=== PATIENT | female | born 2000 | race African-American/Black ===

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

== ENCOUNTER 2022-08-06 09:01 | Emergency (ER) | payer OTHER, SELFPAY ==
[2022-08-06 09:19] VITALS: BP 116/68; PULSE 74; RESP 16; TEMP 35.8; O2SAT 99
--- NOTE | 2022-08-06 09:27 | ED.URI ---
HPI - URI/Sore Throat General Chief Complaint: Upper Respiratory Infection Stated Complaint: sore throat Time Seen by Provider: 08/06/22 09:27 Source: patient and RN notes reviewed Mode of arrival: ambulatory Limitations: no limitations History of Present Illness HPI Narrative: 22-year-old female presented for complaint of sore throat, nasal congestion, and ears clogged x5 days. Taking NyQuil for symptoms. She denies known sick contacts. She denies cough, shortness of breath, wheezing, headache, nausea, vomiting, diarrhea, fevers or chills. MD elicited complaint: cough Related Data Allergies Allergy/AdvReac Type Severity Reaction Status Date / Time ibuprofen AdvReac Intermediate Vomiting Verified 08/06/22 09:21 Review of Systems Review of Systems: ROS per HPI [facility] Past Medical History Medical History No active medical problems No significant past medical history Surgical History Surgical History No significant past surgical history Family History Family History Other No significant family history Social History Social History Smoking status: Never smoker Alcohol intake: never Substance use: current Substance use type: marijuana Living arrangements: with family Occupation/Education: occupation Exam Narrative: GENERAL: Mildly ill-appearing EYES: conjunctivae clear ENT: Mucous membranes moist. TM pearly simons with dull light reflex and clear effusion bilaterally; no tragal tenderness. Oropharynx erythematous without lesions or exudate, no drooling, no hoarseness, no trismus, uvula midline. No tripod positioning, muffled voice, soft palate or pharyngeal wall bulging NECK: Supple. Right posterior cervical lymphadenopathy CHEST: Clear to auscultation, breath sounds equal. No wheezing, rhonchi, rales, or stridor. No respiratory distress, speaks in full sentences. HEART: Regular rate and rhythm. No murmur heard. SKIN: Warm, dry, no rash. NEURO: Alert and oriented x3. PSYCH: Normal mood and affect Course Course Emergency Course: Patient is aware of diagnosis, understands and agrees to treatment plan. Anticipatory guidance given. Patient agrees to follow-up as directed and is aware of reasons to seek care at the emergency department. Portions of this record may have been created with voice recognition software Level of Care: Express Care Visit Vital Signs Vital signs: Vital Signs Temperature 96.4 F L 08/06/22 09:19 Pulse Rate 74 08/06/22 09:19 Respiratory Rate 16 08/06/22 09:19 Blood Pressure 116/68 08/06/22 09:19 Pulse Oximetry 99 08/06/22 09:19 Oxygen Delivery Room Air 08/06/22 09:19 Temperature 96.4 F L 08/06/22 09:19 Pulse Rate 74 08/06/22 09:19 Respiratory Rate 16 08/06/22 09:19 Blood Pressure 116/68 08/06/22 09:19 Pulse Oximetry 99 08/06/22 09:19 Oxygen Delivery Room Air 08/06/22 09:19 reviewed MDM - URI/Sore Throat MDM Narrative Medical decision making narrative: Results of strep test reviewed with patient. Advised supportive measures and signs/symptoms to go to the ER. Pt is appropriate for outpt treatment and f/u. Differential Diagnosis Differential diagnosis: Likely upper respiratory infection, sinusitis and viral infection Discharge Plan Discharge Clinical Impression: Strep pharyngitis Patient Disposition: Home, Self-Care Condition: Stable Instructions: Antibiotic Form Additional Instructions: - Take the antibiotic as directed. Fever and sore throat typically resolve within one to three days. Most patients can return to work after 12 to 24 hours of antibiotic therapy, provided you are fever free and otherwise well. -Eat and drink things that are easy to swallow, like soft foods, cool li
== END 2022-08-06 09:44 | disposition home or self-care (01) ==
PROVIDERS: Emergency Provider Nurse Practitioner Family; PCP Family Medicine
DX: J02.0 Streptococcal pharyngitis (principal)
CPT/HCPCS: 87880; 99213; G0463

== ENCOUNTER 2023-01-28 09:14 | Emergency (ER) | payer OTHER, SELFPAY ==
[2023-01-28 09:26] VITALS: BP 117/63; PULSE 80; RESP 14; TEMP 36.3; O2SAT 98
--- NOTE | 2023-01-28 09:31 | ED.EAR ---
HPI - Ear Problem General Chief complaint: Ear Stated complaint: Right Ear Irritation Time Seen by Provider: 01/28/23 09:30 Source: patient Mode of arrival: ambulatory Limitations: no limitations History of Present Illness HPI Narrative: Terrence is a 22-year-old female patient presenting to the clinic today with complaints of right ear pain. She reports she has been recently treated for a right ear infection. States that she has completed her antibiotics but still having some discomfort in the right ear. Denies any drainage coming from the ear or pain with pulling of the pinna or palpation of the tragus. Has had some nasal congestion. Related Data Allergies Allergy/AdvReac Type Severity Reaction Status Date / Time ibuprofen AdvReac Intermediate Vomiting Verified 01/28/23 09:25 Review of Systems Review of Systems: Pertinent positives per HPI. Patient denies any fever, chills, rash, headache, visual changes, dizziness, sore throat, shortness of breath, chest pain, palpitations, nausea, vomiting, diarrhea, constipation, abdominal pain, or any urinary issues. PMFSH Past Medical History Medical History No active medical problems No significant past medical history Surgical History Surgical History No significant past surgical history Family History Family History Other No significant family history Social History Social History Smoking status: Never smoker Alcohol intake: never Substance use: current Substance use type: marijuana Living arrangements: with family Occupation/Education: occupation Comments At the time of my signature, I reviewed and agree with the nursing past medical, surgical, social, and family history. There is no relevant family history pertinent to the patient complaint. Exam Narrative: General: Well-developed, well nourished, in no apparent distress Head: Normocephalic, atraumatic Eyes: Pupils equally round and reactive to light bilaterally, EOM intact, sclera and conjunctive clear, no discharge, lids normal Ears: Right TMs intact and congestive with fluid noted behind the TM, left TM congested and intact, ear canals clear, no drainage, grossly hearing normal. Nose: Nares patent, clear discharge, no inflammation, no sinus tenderness. Mouth: Oropharynx without lesions or masses, good dentition, MMM. Neck: Supple, trachea midline, no enlargement of anterior or posterior cervical nodes, no thyroid masses or goiter palpable. Cardio: Regular rate and rhythm, s1 and s2 normal, no murmur appreciated. Resp: Clear to auscultation bilaterally anteriorly and posteriorly, no rhonchi, rales, wheezing or rubs Course Course Emergency Course: Portions of this record may have been created with voice recognition software. Level of Care: Express Care Visit Vital Signs Vital signs: Vital signs reviewed Medical Decision Making MDM Narrative Medical decision making narrative: At the time of visit patient is resting comfortably on the exam table. I suspect patient has right serous otitis/eustachian tube dysfunction. Supportive measures were discussed with the patient she voiced understanding discharge instructions agrees to treatment plan. Differential Diagnosis Differential Diagnosis: Otitis media, otitis externa, eustachian tube dysfunction, cerumen impaction, upper respiratory infection, serous otitis Discharge Plan Discharge Clinical Impression: Acute serous otitis media Qualifiers: Laterality: right Recurrence: non-recurrent Qualified Code(s): H65.01 - Acute serous otitis media, right ear Patient Disposition: Home, Self-Care Condition: Stable Instructions: Antibiotic Form, Fluid In The Ear (Serous Otitis Media) (ED)
== END 2023-01-28 09:36 | disposition home or self-care (01) ==
PROVIDERS: Emergency Provider Nurse Practitioner Family; PCP Family Medicine
DX: H65.01 Acute serous otitis media, right ear (principal); F12.90 Cannabis use, unspecified, uncomplicated
CPT/HCPCS: 99213; G0463

== ENCOUNTER 2023-04-25 12:59 | Emergency (ER) | payer SELFPAY ==
[2023-04-25 13:22] VITALS: BP 125/88; PULSE 85; RESP 16; TEMP 36.9; O2SAT 100
--- NOTE | 2023-04-25 13:48 | ED.GENADULT ---
HPI - General Adult General Chief complaint: Ear Stated complaint: Right Ear/Sore Throat Time Seen by Provider: 04/25/23 13:49 Source: patient, RN notes reviewed and old records reviewed Mode of arrival: ambulatory Limitations: no limitations History of Present Illness HPI narrative: 22-year-old female presents to the [facility] with complaints right ear pain and a sore sore throat that started on Monday. Denies any treatment prior to arrival Onset (ago): day(s) (2) Related Data Allergies Allergy/AdvReac Type Severity Reaction Status Date / Time ibuprofen AdvReac Intermediate Vomiting Verified 01/28/23 09:25 Review of Systems Review of Systems: All systems reviewed & are unremarkable except as noted in HPI and below Constitutional: Constitutional: Reports no additional constitutional complaints Eyes: Eyes: Reports no additional eye complaints ENT: Reports as per HPI, Reports otalgia and Reports sore throat Cardiovascular: Cardiovascular: Reports no additional cardiovascular complaints, Denies chest pain and Denies dyspnea Respiratory: Respiratory: Reports no additional respiratory complaints, Denies chest congestion, Denies cough and Denies dyspnea Gastrointestinal: Gastrointestinal: Reports no additional gastrointestinal complaints, Denies abdominal pain, Denies nausea and Denies vomiting Musculoskeletal: Musculoskeletal: Reports no additional musculoskeletal complaints Integumentary/Breasts: Skin/Breast: Reports system reviewed and no additional complaints, except as docu Neurologic: Reports system reviewed and no additional complaints, except as documented Psychiatric: Psychiatric: Reports no additional psychiatric complaints Allergic/Immunologic: Allergic/Immunologic: Reports no additional allergic/immunologic complaints [facility] Past Medical History Medical History No active medical problems No significant past medical history Surgical History Surgical History No significant past surgical history Family History Family History Other No significant family history Social History Social History Smoking status: Never smoker Alcohol intake: never Substance use: current Substance use type: marijuana Living arrangements: with family Occupation/Education: occupation Comments At the time of my signature, I reviewed and agree with the nursing past medical, surgical, social, and family history. There is no relevant family history pertinent to the patient complaint. Exam Const: General: cooperative, healthy appearing, comfortable, no acute distress, well developed, alert and well nourished Nutritional Appearance: well nourished Orientation/consciousness: patient oriented x3 Limitations: no limitations HENMT: Head: normal to inspection Ears: hearing grossly normal bilaterally, external ears normal and TM abnormal bulging on the right and wth effusion serous bilateral; not erythematous Face/Nose/Sinus: Normal external nose present, Normal nares present, Normal nasal mucous membranes and turbinates present, normal facial exam and face symmetric Face and sinus: normal facial exam and face symmetric Mouth: Yes Normal oral and palatal mucosa present, Yes lip normal and Yes moist mucous membranes Throat: posterior oropharynx normal, uvula midline and postnasal drainage Eyes: General: appearance normal, both eyes and all related structures Alignment and Position: alignment normal Periorbital: periorbital findings normal Pupils: Equal, round and reactive pupils present EOM: EOMs intact bilaterally Neck: Neck: normal visual inspection, full ROM, no lymphadenopathy and no meningeal signs Chest: Chest palpation & inspection: normal inspection of the chest Resp: Effort & Inspection: nor
== END 2023-04-25 14:02 | disposition home or self-care (01) ==
PROVIDERS: Emergency Provider Nurse Practitioner; PCP Family Medicine
DX: H65.01 Acute serous otitis media, right ear (principal); J02.9 Acute pharyngitis, unspecified; F12.90 Cannabis use, unspecified, uncomplicated
CPT/HCPCS: 87081; 87880; 99213; G0463

== ENCOUNTER 2023-07-30 12:09 | Emergency (ER) | payer SELFPAY ==
--- NOTE | 2023-07-30 12:17 | ED.DENTAL ---
HPI - Dental/Oral General Chief complaint: Dental/Oral Stated complaint: Dental Pain Time Seen by Provider: 07/30/23 12:27 Source: patient Mode of arrival: ambulatory Limitations: no limitations History of Present Illness HPI Narrative: 23-year-old female presents concern for left upper dental pain for 2-3 days. Ache she reports she injured the to the long time ago but it just started hurting. She denies trouble swallowing, headache, fever. She reports she has a dentist appointment tomorrow. In a separate complaint she reports bilateral ear fullness and discomfort. Reports she occasionally uses Flonase and Benadryl but has not used recently. MD Complaint: tooth pain Related Data Allergies Allergy/AdvReac Type Severity Reaction Status Date / Time ibuprofen AdvReac Intermediate Vomiting Verified 07/30/23 12:19 Review of Systems Review of Systems: CONSTITUTIONAL: Denies malaise, chills, sweats, or fever. EYES: Denies visual changes ENT: Denies rhinorrhea, congestion, sinus pain, or sore throat. Reports left upper dental pain. Reports bilateral ear fullness CARDIOVASCULAR: Denies chest pain, palpitations RESPIRATORY: Denies cough or dyspnea. SKIN: Denies rash or itching. MUSCULOSKELETAL: Denies myalgia. NEUROLOGIC: Denies numbness, weakness, or headache. All systems reviewed & are unremarkable except as noted in HPI and below PMFSH Past Medical History Medical History No active medical problems No significant past medical history Surgical History Surgical History No significant past surgical history Family History Family History Other No significant family history Social History Social History Smoking status: Never smoker Alcohol intake: never Substance use: current Substance use type: marijuana Living arrangements: with family Occupation/Education: occupation Comments At time of signature, agree with nursing past medical, surgical, social and family history. There is no relevant family history pertinent to the presenting complaint Exam Narrative: GENERAL: Well-appearing, well-nourished, and in no acute distress. HEAD: Normocephalic, atraumatic. EYES: PERRLA, sclera clear ENT: Nares clear, turbinates pink, no rhinorrhea or epistaxis. Mucous membranes moist. TM pearly simons with dull light reflex bilaterally; no tragal tenderness. Oropharynx without erythema or lesions. Tonsils not enlarged and without exudate. No Missing teeth, caries. Tooth #13 broken NECK: Supple. No lymphadenopathy. CHEST: No respiratory distress. Speaks in full sentences. HEART: Regular rate and rhythm. SKIN: Warm, dry, no visible rash. NEURO: Alert and oriented x3. PSYCH: Normal mood and affect Course Course Emergency Course: Patient is aware of diagnosis, understands and agrees to treatment plan. Anticipatory guidance given. Patient agrees to follow-up as directed and is aware of reasons to seek care at the emergency department. Portions of this record may have been created with voice recognition software Level of Care: Express Care Visit Vital Signs Vital signs: Reviewed. MDM - Dental/Oral MDM Narrative Medical decision making narrative: Patients pain and complaint coupled with physical findings are consistant with dentalgia. There are no focal signs of space occupying lesions that are compromising to the airway; no dysphagia, odynophagia, dysphonia, or dyspnea. No uvular deviation or soft palate edema. Patient is non-toxic appearing. The floor of the mouth is soft with no signs of Ethan's Angina; no induration below mandible, no neck pain. Patient is without trismus or drooling and able to swallow secretions. Patient is felt appropriate for discharge home with dental follow up.
[2023-07-30 12:19] VITALS: BP 128/70; PULSE 85; RESP 20; TEMP 36.8; O2SAT 100
== END 2023-07-30 12:40 | disposition home or self-care (01) ==
PROVIDERS: Emergency Provider Nurse Practitioner; PCP Family Medicine
DX: K08.89 Other specified disorders of teeth and supporting structures (principal); H73.893 Other specified disorders of tympanic membrane, bilateral
CPT/HCPCS: 99213; G0463

== ENCOUNTER 2023-11-14 17:30 | Emergency (ER) | payer SELFPAY ==
--- NOTE | 2023-11-14 17:38 | ED.URI ---
HPI - URI/Sore Throat General Chief Complaint: Upper Respiratory Infection Stated Complaint: throat pain,right ear pain Time Seen by Provider: 11/14/23 17:39 Source: patient, RN notes reviewed and old records reviewed Mode of arrival: ambulatory Limitations: no limitations History of Present Illness HPI Narrative: 23-year-old female presents to the [facility] with complaints of a sore throat and right ear pain for 2 days. Took NyQuil last night. No other treatment prior to arrival. Treatments prior to arrival: cold medicine (X1) Related Data Allergies Allergy/AdvReac Type Severity Reaction Status Date / Time ibuprofen AdvReac Intermediate Vomiting Verified 11/14/23 17:32 Review of Systems Review of Systems: All systems reviewed & are unremarkable except as noted in HPI and below Constitutional: Constitutional: Reports no additional constitutional complaints Eyes: Eyes: Reports no additional eye complaints ENT: Reports as per HPI, Reports otalgia and Reports sore throat Cardiovascular: Cardiovascular: Reports no additional cardiovascular complaints, Denies chest pain and Denies dyspnea Respiratory: Respiratory: Reports no additional respiratory complaints, Denies chest congestion, Denies cough and Denies dyspnea Gastrointestinal: Gastrointestinal: Reports no additional gastrointestinal complaints, Denies abdominal pain, Denies nausea and Denies vomiting Musculoskeletal: Musculoskeletal: Reports no additional musculoskeletal complaints Integumentary/Breasts: Skin/Breast: Reports system reviewed and no additional complaints, except as docu Neurologic: Reports system reviewed and no additional complaints, except as documented Psychiatric: Psychiatric: Reports no additional psychiatric complaints Allergic/Immunologic: Allergic/Immunologic: Reports no additional allergic/immunologic complaints [facility] Past Medical History Medical History No active medical problems No significant past medical history Surgical History Surgical History No significant past surgical history Family History Family History Other No significant family history Social History Social History Smoking status: Never smoker Alcohol intake: never Substance use: current Substance use type: marijuana Living arrangements: with family Occupation/Education: occupation Comments At the time of my signature, I reviewed and agree with the nursing past medical, surgical, social, and family history. There is no relevant family history pertinent to the patient complaint. Exam Const: General: cooperative, healthy appearing, comfortable, no acute distress, well developed, alert and well nourished Nutritional Appearance: well nourished Orientation/consciousness: patient oriented x3 Limitations: no limitations HENMT: Head: normal to inspection Ears: hearing grossly normal bilaterally, external ears normal, TM's normal bilaterally, EAC's normal, mastoids normal and no periauricular adenopathy Face/Nose/Sinus: Normal external nose present, Normal nares present, Normal nasal mucous membranes and turbinates present, normal facial exam and face symmetric Face and sinus: normal facial exam and face symmetric Mouth: Yes Normal oral and palatal mucosa present, Yes lip normal and Yes tongue normal Throat: posterior oropharynx normal, uvula midline, postnasal drainage and no uvular edema Eyes: General: appearance normal, both eyes and all related structures Alignment and Position: alignment normal Periorbital: periorbital findings normal Pupils: Equal, round and reactive pupils present EOM: EOMs intact bilaterally Neck: Neck: normal visual inspection, full ROM, no lymphadenopathy and no meningeal signs Chest: Chest palpation & insp
[2023-11-14 17:42] VITALS: BP 127/75; PULSE 108; RESP 18; TEMP 36.9; O2SAT 100
== END 2023-11-14 17:52 | disposition home or self-care (01) ==
PROVIDERS: Emergency Provider Nurse Practitioner; PCP Family Medicine
DX: J06.9 Acute upper respiratory infection, unspecified (principal); R09.82 Postnasal drip; F12.90 Cannabis use, unspecified, uncomplicated
CPT/HCPCS: 87081; 87880; 99213; G0463

== ENCOUNTER 2024-03-28 21:14 | Emergency (ER) | payer MEDICAID, SELFPAY ==
--- NOTE | ~2024-03-28 | US_ITS ---
EXAMINATION: US pelvic complete DATE: 03/28/2024 23:07 INDICATION: Abnormal vaginal bleeding. Cramping. TECHNIQUE: Multiple transabdominal sonographic images of the pelvis were obtained. The patient refuse d transvaginal imaging. COMPARISON: None. FINDINGS: The uterus measures 6.8 x 3.2 x 5.5 cm. There is no free fluid in the pelvis. The endometrial complex measures 7 mm in thickness. The ovaries are not visualized. IMPRESSION: 1. Normal uterus. 2. Ovaries not visualized. Reviewed, dictated and finalized at location A.
--- NOTE | ~2024-03-28 | CT_ITS ---
CT of the Abdomen and Pelvis: Indication: Abdominal pain Technique: 2.5 mm axial scans were obtained through the abdomen and pelvis following intravenous adm inistration of 100 cc of Omnipaque 350. Dose reduction technique was used on this scan by utilizing a utomated exposure control and iterative reconstruction technique. The dose-length product (DLP) was 4 52.80 mGy-cm. Findings: Scans through the lung bases are unremarkable. The liver, spleen, pancreas, gallbladder, adrenals and kidneys are within normal limits. No evidence of aortic aneurysm. No lymphadenopathy. No bowel obstruction or bowel wall thickening. There is no evidence to suggest acute appendicitis. Images through the pelvis were performed. Possible mild urinary bladder wall thickening. No pelvic ma ss seen. No ascites. Impression: Possible cystitis. Correlate with urinalysis. Reviewed, dictated and finalized at [facility]. Impression: Possible cystitis. Correlate with urinalysis.
[2024-03-28 21:21] VITALS: BP 130/78; PULSE 84; RESP 16; TEMP 36.7; O2SAT 100
[2024-03-28 21:45] LABS: BEDSIDEPREGUCG Negative (Negative)
[2024-03-28 21:57] LABS: Bacteria Urine None Seen /hpf; RBC Urine >100 /hpf (0-2); Squamous Epithelial Cell Urine None Seen /hpf (Few); WBC Urine >100 /hpf (0-3)
[2024-03-28 22:08] LABS: Add Urine Microscopic? YES; Appearance Urine Turbid (Clear); Bilirubin Urine 1+ (Negative); Blood Urine 3+ (Negative); Color Urine Red (Yellow); Glucose Urine UA Negative (Negative); Ketones Urine Negative (Negative); Leukocyte Esterase Ur 3+ LEU/UL (Negative); Nitrate Urine Negative (Negative); Protein Urine 3+ mg/dL (Negative); Urobilinogen Urine 0.2 mg/dL (<2.0)
[2024-03-29] MEDS: SODIUM CHLORIDE 0.9% IV 1,000 ML 999 ML IV CONT (00:04)
[2024-03-29] MEDS: MORPHINE SULFATE (*CRX) 2 MG/ML INJ IV PUSH (00:05)
[2024-03-29 00:14] VITALS: BP 117/83; PULSE 71; RESP 18; O2SAT 100
[2024-03-29 00:21] LABS: Basophils Percent Auto 0.2 % (0.2-1.2); Eosinophils Absolute Auto 0.1 K/mm3 (0-0.3); Eosinophils Percent Auto 0.9 % (0-4.4); Hematocrit 38.1 % (37.0-47.0); Hemoglobin 12.6 g/dL (12.0-15.0); Immature Granulocyte Absolute 0.17 K/mm3 (0.00-0.031); Immature Granulocyte Percent A 1.5 % (0-0.5); Lymphocytes Absolute Auto 1.94 K/mm3 (0.9-3.2); Lymphocytes Percent Auto 17.5 % (18.3-44.2); Mean Corpuscular HGB Conc 33.1 g/dl (32-36); Mean Corpuscular Hemoglobin 29.7 pg (26-34); Mean Corpuscular Volume 89.9 fl (80-100); Mean Platelet Volume 9.7 fl (7.4-10.4); Monocytes Absolute Auto 0.7 K/mm3 (0.1-0.6); Monocytes Percent Auto 6.7 % (2.6-8.5); Neutrophils Absolute Auto 8.1 K/mm3 (1.3-6.7); Neutrophils Percent Auto 73.2 % (45.5-73.1); Platelet Count Result 267 k/mm3 (150-375); Red Blood Count 4.24 M/mm3 (4.2-5.4); Red Cell Distribution Width 13.3 % (11.5-14.5); White Blood Count 11.1 K/mm3 (4.5-10.0)
--- NOTE | 2024-03-29 00:24 | ED.FEMALEGU ---
HPI - Female Genitourinary General Chief complaint: Urogenital-Female <Akiko Caputo APRN - Last Filed: 03/29/24 00:33> Stated complaint: vagianl bleeding <Akiko Caputo APRN - Last Filed: 03/29/24 00:33> Time Seen by Provider: 03/28/24 22:02 <Akiko Caputo APRN - Last Filed: 03/29/24 00:33> History of Present Illness HPI Narrative: Patient is a 23-year-old female who presents to the ER with lower abdominal pain, blood in her urine, lower back pain, and abdominal cramps. She reports her last menstrual period was around March 06 and her cycle usually comes at regular intervals. Patient is not due to get her menstrual period right now. She endorses abdominal cramping that started 2 days ago. Patient also endorses nausea but no vomiting. She reports she is sexually active and does not use control. Patient rates her pain in the 7-8 range. She reports today she started having bilateral lower back pain. Patient denies any chest pain, shortness of breath, other signs/symptoms of illness. She denies any medical history pertinent to this ER visit. Patient reports she has no concern for sexually transmitted diseases. <Akiko Caputo APRN - Last Filed: 03/29/24 00:33> Related Data Allergies/Adverse reactions: Allergies Allergy/AdvReac Type Severity Reaction Status Date / Time ibuprofen AdvReac Intermediate Vomiting Verified 03/28/24 21:43 <Akiko Caputo APRN - Last Filed: 03/29/24 00:33> Review of Systems Review of Systems: All systems reviewed & are unremarkable except as noted in HPI and below <Akiko Caputo APRN - Last Filed: 03/29/24 00:33> PMFSH Past Medical History Medical History: Medical History No active medical problems No significant past medical history <Akiko Caputo APRN - Last Filed: 03/29/24 00:33> Surgical History Surgical History: Surgical History No significant past surgical history <Akiko Caputo APRN - Last Filed: 03/29/24 00:33> Family History Family History: Family History Other No significant family history <Akiko Caputo APRN - Last Filed: 03/29/24 00:33> Social History Social History: Social History Smoking status: Never smoker Alcohol intake: never Substance use: current Substance use type: marijuana Living arrangements: with family Occupation/Education: occupation <Akiko Caputo APRN - Last Filed: 03/29/24 00:33> Exam Narrative: GENERAL: Well appearing, well-nourished, non-toxic, in no acute distress. HEAD: Normocephalic, atraumatic. NECK: Supple. No adenopathy, no masses. RESPIRATORY: Airway patent, respirations nonlabored. Clear to auscultation bilaterally, no rales, rhonchi, wheezing. CARDIOVASCULAR: Regular rate and rhythm without murmurs, rubs, or gallops. Peripheral pulses 2+ and equal bilaterally. ABDOMINAL: Soft, extreme tenderness in bilateral abdominal quadrants that increases with palpation, nondistended, no hepatosplenomegaly. Normoactive BS. MUSCULOSKELETAL: Moves all extremities. Strength/ROM intact without gross deformities. SKIN: Warm, dry, normal color. No rashes. NEURO: A&O X3. Speech clear. Cranial nerves II-XII grossly intact. Steady gait. No ataxic movements. PSYCHIATRIC: Appropriate mood and affect. Normal interaction. <Akiko Caputo APRN - Last Filed: 03/29/24 00:33> Course Vital Signs Vital signs: Vital Signs Temperature 98.0 F 03/28/24 21:21 Pulse Rate 84 03/28/24 21:21 Respiratory Rate 16 03/28/24 21:21 Blood Pressure 130/78 03/28/24 21:21 Pulse Oximetry 100 03/28/24 21:21 Oxygen Delivery Room Air 03/28/24 21:21 Temperature 97.5 F L 03/29/24 00
[2024-03-29 00:26] LABS: Lactic Acid Reflex 0.9 mmol/L (0.7-2.0)
[2024-03-29 00:31] LABS: Partial Thromboplastin Time 28.4 Seconds (22.3-36.8); Prothrombin Time 13.7 Seconds (11.1-14.7)
[2024-03-29 00:36] LABS: Alanine Aminotransferase 15 U/L (6-35); Albumin Level 3.9 g/dL (3.5-5.1); Alkaline Phosphatase 67 U/L (38-126); Anion Gap 10 mmol/L (4-12); Aspartate Amino Transferase 25 U/L (14-36); Bilirubin,Total 0.3 mg/dL (0.2-1.3); Blood Urea Nitrogen 15 mg/dL (7-17); Calcium 9.1 mg/dL (8.4-10.2); Carbon Dioxide 22 mmol/L (22-30); Chloride 103 mmol/L (98-107); Estimated CRCL calculation 151 ml/min; Estimated Glomerular Filt Rate > 60; Glucose 86 mg/dL (65-110); Potassium 3.6 mmol/L (3.4-5.0); Sodium 135 mmol/L (137-145)
[2024-03-29 00:43] VITALS: TEMP 36.4
[2024-03-29 00:44] LABS: Beta HCG Quantitative < 2.39 mIU/ML
--- NOTE | 2024-03-29 03:38 | PC.NURSE ---
See downtime charting from [id number]
[2024-03-29 03:41] VITALS: BP 111/75; PULSE 75; RESP 15; O2SAT 98
[2024-03-29 05:55] VITALS: BP 114/73; PULSE 85; RESP 19; TEMP 36.9; O2SAT 99
== END 2024-03-29 05:56 | disposition home or self-care (01) ==
PROVIDERS: Emergency Medicine; Emergency Provider Registered Nurse; PCP Family Medicine
DX: N30.91 Cystitis, unspecified with hematuria (principal)
CPT/HCPCS: 36415; 74177; 76856; 80053; 81001; 81025; 83605; 84702; 85025; 85610; 85730; 87040; 87086; 96365; 96375; 99284; J0696; J2270; J7030; Q9967

== ENCOUNTER 2024-05-16 19:33 | Emergency (ER) | payer MEDICAID, SELFPAY ==
--- NOTE | 2024-05-16 19:35 | ED_ITS ---
HPI - Dental/Oral General Chief complaint: Dental/Oral Stated complaint: right side tooth pain Time Seen by Provider: 05/16/24 19:34 Source: patient Mode of arrival: ambulatory Limitations: no limitations History of Present Illness HPI Narrative: Terrence is a 23-year-old female patient presenting to the clinic today with complaints of right-sided dental pain since last night. She reports the area started draining today. Is draining a white discharge from the right upper gum at approximately her 2nd bicuspid/1st molar. No known fever or chills. Does note some right-sided cheek swelling. No fever or chills Related Data Allergies Allergy/AdvReac Type Severity Reaction Status Date / Time ibuprofen AdvReac Intermediate Vomiting Verified 05/16/24 19:35 Review of Systems Review of Systems: Pertinent positives per HPI. Patient denies any fever, chills, rash, headache, visual changes, dizziness, cough, shortness of breath, chest pain, palpitations, nausea, vomiting, diarrhea, constipation, abdominal pain, or any urinary issues. PMFSH Past Medical History Medical History No active medical problems No significant past medical history Surgical History Surgical History No significant past surgical history Family History Family History Other No significant family history Social History Social History Smoking status: Never smoker Alcohol intake: never Substance use: current Substance use type: marijuana Living arrangements: with family Occupation/Education: occupation Comments At the time of my signature, I reviewed and agree with the nursing past medical, surgical, social, and family history. There is no relevant family history pertinent to the patient complaint. Exam Narrative: General: Well-developed, well nourished, in no apparent distress Head: Normocephalic, atraumatic Eyes: Pupils equally round and reactive to light bilaterally, EOM intact, sclera and conjunctive clear, no discharge, lids normal Ears: TMs intact and clear, ear canals clear, no drainage, grossly hearing normal. Nose: Nares patent, no discharge, no inflammation, no sinus tenderness. Mouth: Oral pharynx without lesions or masses, poor dentition, MMM. Dental absc ess at the 2nd right upper bicuspid/1st molar-draining white purulent discharge, tender to palpation with mild fluctuance Neck: Supple, trachea midline, no enlargement of anterior or posterior cervical nodes, no thyroid masses or goiter palpable. Cardio: Regular rate and rhythm, s1 and s2 normal, no murmur appreciated. Resp: Clear to auscultation bilaterally, no rhonchi, rales, wheezing or rubs Course Course Emergency Course: Portions of this record may have been created with voice recognition software. Level of Care: Express Care Visit Vital Signs Vital signs: Vital signs reviewed MDM - Dental/Oral MDM Narrative Medical decision making narrative: At the time of visit patient is resting comfortably on the exam table. Patient appears to be nontoxic. Plan: Patient has a draining dental abscess. Prescription for Augmentin and naproxen was sent to the pharmacy. Has allergy to ibuprofen that causes her vomit but she is able to take Aleve. Supportive measures were discussed with the patient and they voiced understanding discharge instructions and agrees to treatment plan. Return precautions reviewed Differential Diagnosis Differential diagnosis: Likely gingival abscess, dental caries, toothache, dental abscess, fracture of tooth, aphthous ulcer and other (COVID) Discharge Plan Discharge Clinical Impression: Abscess, dental Patient Disposition: Home, Self-Care Condition: Stable Instructions: Antibiotic Form, Dental Abscess (ED) Additional Instructions: Increase fluids and stay well hydrated Take Augmentin and naproxen as prescribed Swish area with warm salt water every 2-3 hours May take Tylenol additionally as needed for pain May apply warm compress to the affected area to help alleviate pain and allow to facilitate drainage of the dental abscess May apply Orajel to the area to help alleviate pain Go to the emergency room if symptoms worsen Follow-up with your dentist as soon as possible Prescriptions: New naproxen 500 mg tablet 500 mg PO BID PRN (Reason: pain) 7 Days Qty: 14 0RF amoxicillin-pot clavulanate 875-125 mg tablet 1 tablet PO Q12H 10 Days Qty: 20 0RF Follow-up/Referrals: Angus,Ronen Guillen MD [Primary Care Provider] - Stand Alone Forms: Work/School Release IP Time of Disposition: 19:45 Quality NIHSS Nursing Documentation ED NIHSS nursing documentation: reviewed/agree
[2024-05-16 19:38] VITALS: BP 115/70; PULSE 102; RESP 16; TEMP 36.8; O2SAT 100
== END 2024-05-16 19:50 | disposition home or self-care (01) ==
PROVIDERS: Emergency Provider Nurse Practitioner Family; PCP Family Medicine
DX: K04.7 Periapical abscess without sinus (principal); F12.90 Cannabis use, unspecified, uncomplicated
CPT/HCPCS: 99213; G0463

== ENCOUNTER 2024-09-01 11:25 | Emergency (ER) | payer MEDICAID, SELFPAY ==
[2024-09-01 11:32] VITALS: BP 126/72; PULSE 76; RESP 16; TEMP 35.8; O2SAT 99
--- NOTE | 2024-09-01 11:39 | ED_ITS ---
HPI - URI/Sore Throat General Chief Complaint: Upper Respiratory Infection Stated Complaint: Ears Irritation/Sinus Time Seen by Provider: 09/01/24 11:25 Source: patient Mode of arrival: ambulatory Limitations: no limitations History of Present Illness HPI Narrative: Patient's symptoms through ear irritation, sinus congestion, sore throat since yesterday. Patient has taken 1 dose of an amoxicillin. Reports sore throat was worse in the morning. Does not take any allergy medicine every day. Denies any fever, chills, nausea, vomiting, diarrhea, cough Related Data Allergies Allergy/AdvReac Type Severity Reaction Status Date / Time No Known Allergies Allergy Verified 09/01/24 11:47 Review of Systems Review of Systems: All systems reviewed & are unremarkable except as noted in HPI and below Constitutional: Constitutional: Denies chills, Denies fatigue, Denies fever(s), Denies headache(s), Denies malaise and Denies weakness Eyes: Eyes: Denies blurry vision, Denies itchy eyes and Denies loss of vision ENT: Reports otalgia, Denies headache(s), Reports nasal congestion, Denies sinus pain and Reports sore throat Cardiovascular: Cardiovascular: Denies chest pain, Denies irregular heart rhythm and Denies dyspnea Respiratory: Respiratory: Denies cough and Denies dyspnea Gastrointestinal: Gastrointestinal: Denies abdominal pain, Denies diarrhea, Denies nausea and Denies vomiting Musculoskeletal: Musculoskeletal: Denies back pain, Denies myalgias and Denies arthralgias Integumentary/Breasts: Skin/Breast: Denies pruritus and Denies rash Neurologic: Denies headache(s), Denies loss of vision and Denies weakness Psychiatric: Psychiatric: Reports no additional psychiatric complaints Endocrine: Endocrine: Denies fatigue Allergic/Immunologic: Allergic/Immunologic: Denies itchy eyes PMFSH Past Medical History Medical History No significant past medical history No active medical problems Surgical History Surgical History No significant past surgical history Family History Family History Other No significant family history Social History Social History Smoking status: Never smoker Alcohol intake: never Substance use: current Substance use type: marijuana Living arrangements: with family Occupation/Education: occupation Comments At time of signature, agree with nursing past medical, surgical, social and family history. There is no relevant family history pertinent to the presenting complaint. Exam Const: General: cooperative, healthy appearing, comfortable, no acute distress and well nourished Nutritional Appearance: well nourished Orientation/consciousness: patient oriented x3 Limitations: no limitations HENMT: Head: normal to inspection, normocephalic and atraumatic Ears: hearing grossly normal bilaterally, external ears normal, TM's normal bilaterally, EAC's normal and no periauricular adenopathy Face/Nose/Sinus: Normal external nose present, Abnormal mucous membranes and turbinates present erythematous bilateral and diffuse, normal facial exam, sinuses nontender and face symmetric Face and sinus: normal facial exam, sinuses nontender and face symmetric Mouth: Yes Normal oral and palatal mucosa present, Yes lip normal, Yes tongue normal, Yes Normal salivary glands and ducts present, Yes oropharynx normal and Yes moist mucous membranes Teeth and gingiva: dentition normal Throat: posterior oropharynx normal, tonsils normal and uvula midline Eyes: General: appearance normal, both eyes and all related structures Alignment and Position: alignment normal and position normal Periorbital: periorbital findings normal Eyelids: eyelids normal Pupils: Equal, round and reactive pupils present Neck: Neck: normal visual inspection, full ROM, no lymphadenopathy and supple Chest: Chest palpation & inspection: normal inspection of the chest and normal palpation of entire chest wall Resp: Effort & Inspection: normal respiratory effort and able to speak in complete sentences Auscultation: clear to auscultation bilaterally, no crackles, no rales, no rhonchi and no wheezes Cardio: Rate: regular rate Rhythm: regular rhythm Heart sounds: S1 normal heart sound present and S2 normal heart sound present GI: Inspection: normal to inspection Skin: General skin exam: normal color and no rashes or lesions noted Neuro: General: patient oriented x3 and moves all extremities Cranial nerves: Yes Equal, round and reactive pupils present Speech: normal speech Gait exam (Neuro): Normal gait present Extrem: General: normal to inspection, full ROM and no edema Psych: Appearance: grossly normal and well kempt Mental Status: mental status grossly normal Speech and movement: Normal speech and movement present Affect: normal affect Attitude: cooperative Thought process: Normal thought process present Course Course Emergency Course: Discharge instructions reviewed with patient, as well as provided in writing per nursing staff. The instructions also include specific and strict return/GO TO THE ER as well as f/u information. All questions have been answered, and the patient deny any further questions with discharge and discharge plan. Portions of this record may have been created with voice recognition software Level of Care: Express Care Visit Vital Signs Vital signs: Vital Signs Temperature 35.8 C L 09/01/24 11:32 Pulse Rate 76 09/01/24 11:32 Respiratory Rate 16 09/01/24 11:32 Blood Pressure 126/72 09/01/24 11:32 Pulse Oximetry 99 09/01/24 11:32 Oxygen Delivery Room Air 09/01/24 11:32 Temperature 35.8 C L 09/01/24 11:32 Pulse Rate 76 09/01/24 11:32 Respiratory Rate 16 09/01/24 11:32 Blood Pressure 126/72 09/01/24 11:32 Pulse Oximetry 99 09/01/24 11:32 Oxygen Delivery Room Air 09/01/24 11:32 Reviewed MDM - URI/Sore Throat MDM Narrative Medical decision making narrative: Pt well hydrated appearing, in no respiratory distress, hemodynamically stable. Recommend supportive care. The patient is stable at time of discharge the clinical impression was discussed and the patient was given the opportunity to ask questions, which were addressed as completely as possible given the information available at present. Anticipatory guidance and return to care precautions were discussed and the importance of primary care follow-up was stressed and encouraged. The patient voiced understanding of the plan, indications to return, and the need for follow-up. Differential diagnosis considered: Bronchitis, Saucedo virus, strep pharyngitis, allergic rhinitis, upper respiratory tract infection, sinusitis, rhinosinusitis, nasopharyngitis. viral pharyngitis, otitis media, otitis externa, otitis effusion, foreign body, cerumen impaction, viral syndrome, and influenza.? Exam findings show no acute concerns or changes; patient is non-toxic appearing and is in no distress.? Patient is appropriate for outpatient treatment and follow- up.? Medical Records Attestation: I reviewed the patient's medical records. Discharge Plan Discharge Clinical Impression: Upper respiratory infection Qualifiers: URI type: unspecified viral URI Qualified Code(s): J06.9 - Acute upper respiratory infection, unspecified Patient Disposition: Home, Self-Care Condition: Stable Instructions: Upper Respiratory Infection (ED) Additional Instructions: Your symptoms are likely due to a viral illness, which is not treated with antibiotics. Viral symptoms can be present for up to a few weeks. -For pain/fever, you may take: Tylenol 650-1000mg by mouth every 4-6 hours. Do not exceed 4000mg in 24 hours. Advil (Ibuprofen) 600 mg by mouth every 6 hours. Do not exceed 2400mg in 24 hours. 8 AM: Tylenol 11 AM: Ibuprofen 2 PM: Tylenol 5 PM: Ibuprofen 8 PM: Tylenol 11 PM: Ibuprofen 2 AM: Tylenol 5 AM: Ibuprofen -Antihistamine medication such as Benadryl/Zyrtec at night and Claritin/Hanny during the day can help improve symptoms. -Use Flonase twice a day for 5 days then daily to help reduce the inflammation and dry up your sinuses. -You can also use Sudafed behind the pharmacy counter(12 or 24 hour). Be sure to drink plenty of water with these medications at least 8 ounces with every dose and it is important to drink 8 to 10 glasses of water per day. Water is a natural decongestant -Eat and drink things that are easy to swallow, like tea or soup, or popsicles. -Oral rinses such as: Salt water gargles and/or may use topical anesthetic (eg. Chloraseptic spray) or lozenges to relieve dryness or throat pain). -Frequent hand washing or hand green feed attendant is one of the best ways to prevent spread of infection. -Using a vaporizer or humidifier at night will also help thin secretions and help with coughing up phlegm. Call your Primary Care Doctor and make a follow-up appointment in 3 days. If your cough worsens, you develop a fever greater than 103, you develop shaking chills, a fast heartbeat, trouble breathing and/or feel you are are breathing much faster than usual, call your Primary Care Doctor or go to the ER. Patient Language: Occitan Prescriptions: New fluticasone propionate [Flonase Allergy Relief] 50 mcg/actuation spray,suspension 1 spray intranasal DAILY Qty: 16 2RF Rx Instructions: administer into each nostril No Action naproxen 500 mg tablet 500 mg PO BID PRN (Reason: pain) 7 Days Qty: 14 0RF amoxicillin-pot clavulanate 875-125 mg tablet 1 tablet PO Q12H 10 Days Qty: 20 0RF Follow-up/Referrals: Angus,Ronen Guillen MD [Primary Care Provider] - 3 Days Stand Alone Forms: Work/School Release IP Time of Disposition: 11:46
== END 2024-09-01 11:48 | disposition home or self-care (01) ==
PROVIDERS: Emergency Provider Nurse Practitioner Family; PCP Family Medicine
DX: J06.9 Acute upper respiratory infection, unspecified (principal)
CPT/HCPCS: 99213; G0463

== ENCOUNTER 2025-04-08 08:58 | Emergency (ER) | payer MEDICAID, SELFPAY ==
--- NOTE | ~2025-04-08 | US_ITS ---
EXAMINATION: US OB <=14 wk fetus w TV DATE: 04/08/2025 10:41 INDICATION: Vaginal bleeding and cramping during first trimester TECHNIQUE: Real-time pelvic ultrasound utilizing both a transvaginal and transabdominal probe was performed. The interpreting radiologist was not present for the study. COMPARISON: None. FINDINGS: The uterus measures 8.7 x 4.9 x 3.8 cm. The endometrial complex measures1.1 cm in thickness. There is a 2 mm anechoic structure positioned eccentrically within the endometrial complex at the uterine fundus suggestive of a tiny gestational sac. No yolk sac or pole identified likely due to early stage of . The mean sac diameter of 2 mm correlates with an estimated gestational age of 4 weeks and 6 days. The right ovary measures 2.3 x 1.5 x 1.5 cm. The left ovary measures 3.3 x 3.0 x 1.7 cm. 1.6 cm thick-walled centrally anechoic corpus luteum cyst in the left ovary. Vascular flow identified in both ovaries on color Doppler. There is no free fluid in the pelvis. IMPRESSION: 1. 2 mm cystic structure positioned eccentrically within the endometrial complex most likely representing an intrauterine gestational sac but without visible yolk sac or pole likely due to early stage of . In the absence however definitive findings of a gestational sac could not absolutely exclude pseudosac in the setting of an ectopic . 2. Gestational age by ultrasound of 4 weeks 6 day(s) with ultrasound estimated date of delivery (PITA) of 12/10/2025. Reviewed, dictated and finalized at location A. IMPRESSION: 1. 2 mm cystic structure positioned eccentrically within the endometrial comple x most likely representing an intrauterine gestational sac but without visible yolk sac or pole likely due to early stage of . In the absence h owever definitive findings of a gestational sac could not absolutely exclude ps eudosac in the setting of an ectopic . 2. Gestational age by ultrasound of 4 weeks 6 day(s) with ultrasound estimated date of delivery (PITA) of 12/10/2025.
[2025-04-08 09:02] VITALS: BP 137/78; PULSE 86; RESP 14; TEMP 36.8; O2SAT 100
[2025-04-08 09:23] VITALS: BP 129/84; PULSE 90
[2025-04-08 09:27] VITALS: BP 127/90; PULSE 90
[2025-04-08 09:28] VITALS: BP 141/81; PULSE 98
--- OUTSIDE RECORDS SUMMARY | 2025-04-08 09:31 | XMS_ITS | Clinical Summary ---
Author Organization [facility] Address [address] [place] [address] Care Team Providers Care Computer Consultant Name Role Phone AntoninodiyaSupriya kaur Natty MARSN-ASSISTANT PROJECT MANAGER Primary Care Provider + Source Comments [facility],non-owned Affiliates and Associated Physician Practices is amultiple site organization consisting of ambulatory clinics and hospital sitesin [place], [place], [place] and [place]. This disclosure is being madepursuant to the Care Everywhere program and may not contain all information available regarding this patient. Last updated 18.[facility] [employer] Allergies No known active allergies Social History Tobacco Use Types Packs/Day Years Used Date Smoking Tobacco: Never Smokeless Tobacco: Never Comments No Sex and Gender Information Value Date Recorded Sex Assigned at Not on file Legal Sex Female 8:53 AM CDT Gender Identity Not on file Sexual Orientation Not on file Last Filed Vital Signs Vital Sign Reading Time Taken Comments Blood Pressure 108/78 04/15/2017 10:05 AM CDT Pulse 80 04/15/2017 10:05 AM CDT Temperature 36.8 C (98.3 F) 04/15/2017 10:05 AM CDT Respiratory Rate 16 04/15/2017 10:05 AM CDT Oxygen Saturation 98% 04/15/2017 10:05 AM CDT Inhaled Oxygen Concentration - - Weight 73 kg (161 lb) 04/15/2017 10:05 AM CDT Height 163 cm (5' 4.17) 04/15/2017 10:05 AM CDT Body Mass Index 27.49 04/15/2017 10:05 AM CDT Plan of Treatment Health Maintenance Due Date Last Done Comments HIV SCREENING 2016 HPV VACCINE (1 - 3-dose series) 2016 CHLAMYDIA/GONORRHEA SCREENING 2017 MENINGOCOCCAL (Group B) VACC INE SHARED DECISION-MAKING (1 of 2 - Standard) 2017 HEPATITIS C SCREENING 07/08/2019 DTAP/TDAP/TD VACCINES (1 - Tdap) 2020 HEPATITIS B VACCINE (1 of 3 - 19+ 3-dose series) 2020 DEPRESSION SCREENING 06/12/2024 COVID-19 VACCINE (1 - 2023-2 5 season) 2025 INFLUENZA VACCINE (#1) 2025 ZOSTER VACCINE (1 of 2) 2051 HIB VACCINE Aged Out No longer eligi ble based on patient's age to complete this topic MENINGOCOCCAL GROUPS A/C/Y/W VACCINE Aged Out No longer eligible b ased on patient's age to complete this topic PNEUMOCOCCAL VACCINE Aged Out No long er eligible based on patient's age to complete this topic Care Teams Computer Consultant Relationship Specialty Start Date End Date Supriya Brandon, VENEER CUTTER-ASSISTANT PROJECT MANAGER [address] [place] [address] PCP - General Nurse Practitioner 08/19/14
--- OUTSIDE RECORDS SUMMARY | 2025-04-08 09:31 | XMS_ITS | Clinical Summary ---
Author Organization [facility] Chipiselastanley valencia [facility] Address [address] [place] [address] Care Team Providers Care Licensing Engineer Name Role Phone Provider, Abstract Aok Primary Care Provider Rena vailable Allergies Active Allergy Reactions Criticality Noted Date Comments Ibuprofen Nausea and Vomiting High 01/07/2020 Medications Tri-Sprintec, 28, 0.18/0.215/0.25 mg-35 mcg (28) tablet TK 1 T PO QD 11/09/2019 Active Active Problems No known active problems Family History Relation Name Status Comments Brother Alive Father Alive Mother Alive Social History Tobacco Use Types Packs/Day Years Used Date Smoking Tobacco: Never Smokeless Tobacco: Never Alcohol Use Standard Drinks/Week Comments Not Currently 0 (1 standard drink = 0.6 oz pur e alcohol) Comments No Sex and Gender Information Value Date Recorded Sex Assigned at Not on file Legal Sex Female 1:41 PM CDT Gender Identity Not on file Sexual Orientation Not on file Last Filed Vital Signs Vital Sign Reading Time Taken Comments Blood Pressure 109/84 01/07/2020 3:08 PM CDT Pulse 90 01/07/2020 3:08 PM CDT Temperature 37.1 C (98.8 F) 01/07/2020 3:08 PM CDT Respiratory Rate - - Oxygen Saturation 98% 01/07/2020 3:08 PM CDT Inhaled Oxygen Concentration - - Weight 70.3 kg (155 lb) 01/07/2020 3:08 PM CDT Height 160 cm (5' 3) 01/07/2020 3:08 PM CDT Body Mass Index 27.46 01/07/2020 3:08 PM CDT Plan of Treatment Health Maintenance Due Date Last Done Comments CHLAMYDIA SCREENING (ANNUAL) 11-24 YEARS 2012 HPV VACCINES (1 - 3-dose series) 2016 DTAP/TDAP/TD VACCINES (1 - Tdap) 2020 HEPATITIS B VACCINES (1 of 3 - 19+ 3-dose series) 06/14 CERVICAL CANCER SCREENING 2022 HPV/Cotest (21-29) 2022 PAP SMEAR 2022 INFLUENZA VACCINE (#1) 2025 Care Teams Licensing Engineer Relationship Specialty Start Date End Date Provider, Abstract Aok NO ADDRESS ON FILE PCP - General Family Practice 12/10/19
--- OUTSIDE RECORDS SUMMARY | 2025-04-08 09:31 | XMS_ITS | Clinical Summary ---
Author Organization [facility] Address [address] [place] [id number] Care Team Providers Care Geriatric Aide Name Role Phone Ronen Greco MD Primary Care Provider [phone] Allergies Active Allergy Reactions Criticality Noted Date Comments Ibuprofen Nausea And Vomiting High 01/07/2020 Medications terbinafine (LamiSIL) 250 mg tablet Take 1 tablet everyday for the first 14 days of the month for 3 months 14 tablet 3 1 Active Additional Information Patient not taking.Reported on 02/28/2022 butalbital-acet aminophen-caffe ine (ESGIC) 50-325-40 mg per tablet Take 1 tablet by mouth every 4 (four) hours as needed for headaches 12 tablet Active Additional Information Patient not taking.Reported on 02/28/2022 Active Problems Problem Noted Date Diagnosed Date Iron deficiency anemia due to chronic blood loss 12/24/2020 Assessment & Plan (12/24/2020 3:04 PM CDT): Chronic condition unknown control Order iron panel Hypocalcemia 12/24/2020 Assessment & Plan (12/24/2020 3:04 PM CDT): Order lab for evaluation. Family History Medical History Relation Name Comments No Known Problems Father No Known Problems Maternal Grandfather Diabetes Maternal Grandmother No Known Problems Mother No Known Problems Paternal Grandfather No Known Problems Paternal Grandmother Breast cancer Neg Hx Ovarian cancer Neg Hx Relation Name Status Comments Father Alive Maternal Grandfather Maternal Grandmother Mother Alive Paternal Grandfather Paternal Grandmother Social History Tobacco Use Types Packs/Day Years Used Date Smoking Tobacco: Never Smokeless Tobacco: Never AUDIT-C Answer Date Recorded Q1: How often do you have a drink containing alcohol? Never 02/28/2022 Q2: How many drinks containi ng alcohol do you have on a typical day when you are drinking? Patient does not drink Q3: How often do you have si x or more drinks on one occasion? Never 02/28/2022 PHQ-2 Answer Date Recorded PHQ-2 Total Score (If total score is 3 or more points, staff should administer the PHQ-9) 0 02/11/2021 Personal Safety Answer Date Recorded Have you ever been in or are you currently in a harmful physical or emotional relationship or is someone making you feel afraid or unsafe? Denies 05/13/2023 Comments No Sex and Gender Information Value Date Recorded Sex Assigned at Not on file Legal Sex Female 11:46 AM CDT Gender Identity Not on file Sexual Orientation Not on file Obstetrics History Para Term AB IAB SAB Ectopic Multiple Livin g Live Births 0 0 0 0 0 0 0 0 0 0 0 Last Filed Vital Signs Vital Sign Reading Time Taken Comments Blood Pressure 124/84 05/13/2023 9:57 PM IT SECURITY ARCHITECT Pulse 61 05/13/2023 9:57 PM IT SECURITY ARCHITECT Temperature 36.8 C (98.2 F) 05/13/2023 5:28 PM IT SECURITY ARCHITECT Respiratory Rate 17 05/13/2023 9:57 PM IT SECURITY ARCHITECT Oxygen Saturation 100% 05/13/2023 9:57 PM IT SECURITY ARCHITECT Inhaled Oxygen Concentration - - Weight 72.6 kg (160 lb) 05/13/2023 5:28 PM IT SECURITY ARCHITECT Height 162.6 cm (5' 4) 05/13/2023 5:28 PM IT SECURITY ARCHITECT Body Mass Index 27.46 05/13/2023 5:28 PM IT SECURITY ARCHITECT Plan of Treatment Health Maintenance Due Date Last Done Comments Cervical Cancer Screening 2001 Hepatitis C Screening 2001 HPV Vaccines (1 - 3-dose series) 2016 Meningococcal B Vaccine (1 o f 2 - Standard) 2017 Chlamydia and Gonorrhea (GC/ CT) Screening 01/21/2022 01/21/2021 Depression Screening 02/11/2022 02/11/2021, 12/25/19 21 DTaP/Tdap/Td Vaccine (7 - Td or Tdap) 01/17/2023 01/17/2013, 02/01/2006, 02/01/2006, Additional history exists Regular Well Visit/Exam 18-64 02/28/2023 02/28/2022, 01/21/2021 Influenza Vaccine (#1) 2025 03/23/2022 Hepatitis B Screening Completed 02/14/2002 , 02/14/2002, 2001, Additional history exists Pneumococcal vaccine <65 Completed 003, 2001, 2001, Additional history exists Varicella Vaccines Discontinued 01/17/2013, 01/20/2003 Procedures Procedure Name Priority Date/Time Associated Diagnosis Comments N. GONORRHOEAE/C. TRACHOMATIS AMPLIFICATION Routine 01/21/2021 12:12 PM CDT Screening for STD (sexually transmitted disease) from Last 3 Months or Most Recently Relevant to Health Maintenance Results * N. gonorrhoeae/C. trachomatis Amplification Urine (01/21/2021 12:12 PM CDT) C. trachomatis RNA NOT DETECTED NOT DETECTED [facility] N. gonorrhoeae RNA NOT DETECTED NOT DETECTED [facility] Comment [facility] Comment: The analytical performance characteristics of this assay, when used to test SurePath(TM) specimens have been determined by [facility]. The modifications have not been cleared or approved by the FDA. This assay has been validated pursuant to the CLIA regulations and is used for clinical purposes. For additional information, please refer to https://education.[employer]/faq/PAP935 (This link is being provided for information/ educational purposes only.) Urine (None) 01/21/2021 12:1 2 PM CDT 01/22/2021 8:16 AM CDT us [facility] ORDERABLES Final Result [facility] [phone] [address] [phone] from Last 3 Months or Most Recently Relevant to Health Maintenance [facility] [place] Care Teams Geriatric Aide Relationship Specialty Start Date End Date Ronen Greco MD PCP - General Family Medicine 05/13/23
[2025-04-08 09:32] LABS: Hematocrit 43.0 % (37.0-47.0); Hemoglobin 13.9 g/dL (12.0-15.0); Immature Granulocyte Percent A 0.2 % (0-0.5); Lymphocytes Absolute Auto 1.85 K/mm3 (0.9-3.2); Mean Corpuscular HGB Conc 32.3 g/dl (32-36); Mean Corpuscular Hemoglobin 28.8 pg (26-34); Mean Corpuscular Volume 89.0 fl (80-100); Nucleated Red Blood Cells Absolute Auto 0.000 K/mm3 (0.0-0.012); Nucleated Red Blood Cells Perc 0.0 % (0.0-0.2); Platelet Count Result 406 k/mm3 (150-375); Red Blood Count 4.83 M/mm3 (4.2-5.4); White Blood Count 5.6 K/mm3 (4.5-10.0)
[2025-04-08 09:33] LABS: BEDSIDEPREGUCG Positive (Negative)
--- NOTE | 2025-04-08 09:38 | ED.PREGNANCY ---
HPI - General Chief complaint: Vaginal Bleeding Stated complaint: /bleeding and cramping Time Seen by Provider: 04/08/25 09:07 Source: patient Mode of arrival: ambulatory Limitations: no limitations History of Present Illness HPI Narrative: This is a 24 year old female that presents to the ER for vaginal bleeding. Reports her LMP was sometime in the middle of February. Reports she had a positive test at home. She started having some spotting today and pelvic cramping. Related Data Allergies Allergy/AdvReac Type Severity Reaction Status Date / Time No Known Allergies Allergy Verified 09/01/24 11:47 Review of Systems Review of Systems: All systems reviewed & are unremarkable except as noted in HPI and below PMFSH Past Medical History Medical History No significant past medical history No active medical problems Surgical History Surgical History No significant past surgical history Family History Family History Other No significant family history Social History Social History Smoking status: Never smoker Alcohol intake: never Substance use: current Substance use type: marijuana Living arrangements: with family Occupation/Education: occupation Exam Narrative: GENERAL: Well-appearing, well-nourished, and in no acute distress. HEAD: Normocephalic, atraumatic. EYES: EOMI. CHEST: Clear to auscultation. No respiratory distress. No wheezes rales or rhonchi HEART: Regular rate and rhythm. No murmur heard. Normal peripheral pulses. ABDOMEN: Soft, nontender, nondistended, normal active bowel sounds. EXTREMITIES: Normal range of motion. No edema. SKIN: Warm, dry, no rash. NEURO: No focal deficits. Alert and oriented x3. PSYCH: Normal mood and affect Course Course Emergency Course: Patient updated on her workup, resting comfortably Vital Signs Vital signs: Vital Signs Temperature 98.2 F 04/08/25 09:02 Pulse Rate 86 04/08/25 09:02 Respiratory Rate 14 04/08/25 09:02 Blood Pressure 137/78 04/08/25 09:02 Pulse Oximetry 100 10/28/25 09:02 Oxygen Delivery Room Air 04/08/25 09:02 Temperature 98.2 F 04/08/25 09:02 Pulse Rate 75 04/08/25 11:12 Respiratory Rate 15 04/08/25 11:12 Blood Pressure 126/71 04/08/25 11:12 Pulse Oximetry 100 04/08/25 11:12 Oxygen Delivery Room Air 04/08/25 09:02 MDM - OB/Uterine Contractions MDM Narrative Medical decision making narrative: Patient presents to the emergency department for bleeding in early . She is afebrile and nontoxic appearing. Her vitals are stable. Hemoglobin is normal. Patient is B positive. Quantitative beta hCG 518. Obstetric ultrasound showing a possible intrauterine gestational sac. Patient updated on her workup. Will be given order for repeat quantitative beta HCG in 2 days. Follow-up with OB. She was given warnings to return to the ER Differential Diagnosis Differential diagnosis: Likely other (Threatened miscarriage, miscarriage) Lab Data Attestation: I reviewed the patient's lab results. 04/08/25 09:21 04/08/25 09:21 Labs: Lab Results 04/08/25 04/08/25 04/08/25 Range/Units 09:21 09:22 09:29 WBC 5.6 (4.5-10.0) K/mm3 RBC 4.83 (4.2-5.4) M/mm3 Hgb 13.9 (12.0-15.0) g/dL Hct 43.0 (37.0-47.0) % MCV 89.0 (80-100) fl MCH 28.8 (26-34) pg MCHC 32.3 (32-36) g/dl RDW 14.3 (11.5-14.5) % Plt Count 406 H D (150-375) k/mm3 MPV 9.5 (7.4-10.4) fl Immature Gran % (Auto) 0.2 (0-0.5) % Neut % (Auto) 57.1 (45.5-73.1) % Lymph % (Auto) 33.0 (18.3-44.2) % Ballard % (Auto) 8.6 H (2.6-8.5) % Eos % (Auto) 0.9 (0-4.4) % Baso % (Auto) 0.2 (0.2-1.2) % Lymph # (Auto) 1.85 (0.9-3.2) K/mm3 Ballard # (Auto) 0.5 (0.1-0.6) K/mm3 Eos # (Auto) 0.1 (0-0.3) K/mm3 Baso # (Auto) 0.0 (0.0-0.1) K/mm3 Abs Immat Gran (auto) 0.01 (0.00-0.031) K/mm3 Absolute Neuts (auto) 3.2 (1.3-6.7) K/mm3 Absolute Nucleated RBC 0.000 (0.0-0.012) K/mm3 Nucleated RBC % 0.0 (0.0-0.2) % PT 13.4 (11.1-14.7) Seconds INR 1.0 APTT 25.9 (22.3-36.8) Seconds Sodium 141 (137-145) mmol/L Potassium 3.8 (3.4-5.0) mmol/L Chloride 108 H (98-107) mmol/L Carbon Dioxide 23 (22-30) mmol/L Anion Gap 10 (4-12) mmol/L BUN 13 (7-17) mg/dL Creatinine 0.66 L (0.7-1.0) mg/dL Estim Creat Clear Calc 119 ml/min Estimated GFR > 60 (59 - ) Glucose 84 (65-110) mg/dL Calcium 9.1 (8.4-10.2) mg/dL Total Bilirubin 0.6 (0.2-1.3) mg/dL AST 23 (14-36) U/L ALT 17 (6-35) U/L Alkaline Phosphatase 78 (38-126) U/L Total Protein 7.7 (6.3-8.2) g/dL Albumin 4.1 (3.5-5.1) g/dL Beta HCG, Quant 518.76 mIU/ML Urine Color Yellow (Yellow) Urine Appearance Clear (Clear) Urine pH 6.0 (5.0-9.0) Ur Specific Urania 1.028 (1.001-1.035) Urine Protein Negative (Negative) mg/dL Urine Glucose (UA) Negative (Negative) mg/dL Urine Ketones 1+ H (Negative) mg/dL Ur Blood (Man) 2+ H (Negative) Urine Nitrate Negative (Negative) Urine Bilirubin Negative (Negative) Urine Urobilinogen 1.0 (<2.0) mg/dL Add Ur Microanalysis Reviewed Leukocyte Esterase Rfl 1+ H (Negative) [facility] Urine RBC 3-5 H (0-2) /hpf Urine WBC 0-5 (0-3) /hpf Ur Squamous Epith Cells Occasional (Few) /hpf Urine Bacteria 1+ H /hpf Urine Casts 0-2 Urine Mucus Present /lpf POC Urine HCG, Qual Positive (Negative) Blood Type B Positive Antibody Screen Negative Screen Not Reportable Baby's Blood Type Not Reportable Baby's BIBIANA Not Reportable Doses of RhIg Required 0 Imaging Data Radiologist's impression: ITS Impressions Obstetrics Ultrasound 04/08/25 10:54 IMPRESSION: 1. 2 mm cystic structure positioned eccentrically within the endometrial complex most likely representing an intrauterine gestational sac but without visible yolk sac or pole likely due to early stage of . In the absence however definitive findings of a gestational sac could not absolutely exclude pseudosac in the setting of an ectopic . 2. Gestational age by ultrasound of 4 weeks 6 day(s) with ultrasound estimated date of delivery (PITA) of 12/10/2025. Critical Care Time Critical Care Time Critical Care Time: No Discharge Plan Discharge Clinical Impression: Vaginal bleeding in Patient Disposition: Home Condition: Stable Instructions: Threatened Miscarriage (ED) Additional Instructions: Return to the ER if you experience fever, abdominal pain with nausea and vomiting, you are unable to keep down liquids or solids, worsening pain, you are soaking through a pad/hour, or any other symptoms that are concerning to you Pelvic rest, no tampons or sex. Tylenol as needed for discomfort. Take a vitamin daily. I have sent an order electronically for you to have your hormone re-drawn in 2 days Follow up with OB Patient Language: Sinhala Prescriptions: No Action fluticasone propionate [Flonase Allergy Relief] 50 mcg/actuation spray,suspension 1 spray intranasal DAILY Qty: 16 2RF Rx Instructions: administer into each nostril Other Ambulatory Orders: Beta HCG Quantitative (Routine) Timeframe: 2 Days Location: Determined by Patient Ordered By: Delilah Watts Follow-up/Referrals: Arnulfo Nieves MD [Physician, AUTOMATIC BEADING LATHE OPERATOR] Angus,Ronen Guillen MD [Primary Care Provider]
[2025-04-08 09:42] LABS: INR 1.0; Prothrombin Time 13.4 Seconds (11.1-14.7)
[2025-04-08 09:43] LABS: Partial Thromboplastin Time 25.9 Seconds (22.3-36.8)
[2025-04-08 09:57] LABS: Add Urine Microscopic? YES; Appearance Urine Clear (Clear); Glucose Urine UA Negative (Negative); Leukocyte Esterase Ur 1+ LEU/UL (Negative); Need Manual Microscopic Reviewed; Nitrate Urine Negative (Negative); Non Pathogenic Casts 0-2; Specific Grav Ur 1.028 (1.001-1.035)
[2025-04-08 10:08] LABS: Beta HCG Quantitative 518.76 mIU/ML
[2025-04-08 10:16] LABS: Alanine Aminotransferase 17 U/L (6-35); Albumin Level 4.1 g/dL (3.5-5.1); Alkaline Phosphatase 78 U/L (38-126); Anion Gap 10 mmol/L (4-12); Aspartate Amino Transferase 23 U/L (14-36); Bilirubin,Total 0.6 mg/dL (0.2-1.3); Blood Urea Nitrogen 13 mg/dL (7-17); Calcium 9.1 mg/dL (8.4-10.2); Carbon Dioxide 23 mmol/L (22-30); Chloride 108 mmol/L (98-107); Estimated CRCL calculation 119 ml/min; Estimated Glomerular Filt Rate > 60; Glucose 84 mg/dL (65-110); Potassium 3.8 mmol/L (3.4-5.0); Sodium 141 mmol/L (137-145); Total Protein 7.7 g/dL (6.3-8.2)
[2025-04-08 11:12] VITALS: BP 126/71; PULSE 75; RESP 15; O2SAT 100
--- OUTSIDE RECORDS SUMMARY | 2025-04-08 12:09 | XMS_ITS | Clinical Summary ---
Author Organization [facility] Health Address [address] [place] [address] Care Team Providers Care Activity Director Name Role Phone AntoninodiyaSupriya kaur Natty MARSN-WORKCELL OPERATOR Primary Care Provider + Source Comments [facility],non-owned Affiliates and Associated Physician Practices is amultiple site organization consisting of ambulatory clinics and hospital sitesin [place], [place], [place] and [place]. This disclosure is being madepursuant to the Care Everywhere program and may not contain all information available regarding this patient. Last updated 18.[facility]ater [facility] u Allergies No known active allergies Social History [...] age to complete this topic Care Teams Activity Director Relationship Specialty Start Date End Date Supriya Brandon, AFRICAN HISTORY PROFESSOR-WORKCELL OPERATOR [address] [place] [address] PCP - General Nurse Practitioner 08/19/14
--- OUTSIDE RECORDS SUMMARY | 2025-04-08 12:09 | XMS_ITS | Clinical Summary ---
Author Organization [facility] Chipiselastanley valencia [facility] Address [address] [place] [address] Care Team Providers Care Engine Boss Name Role Phone Provider, Abstract Aok Primary [...] 2022 INFLUENZA VACCINE (#1) 2025 Care Teams Engine Boss Relationship Specialty Start Date End Date Provider, Abstract Aok NO ADDRESS ON FILE PCP - General Family Practice 12/10/19
--- OUTSIDE RECORDS SUMMARY | 2025-04-08 12:09 | XMS_ITS | Clinical Summary ---
Author Organization [facility] Address [address] [place] [id number] Care Team Providers Care Customer Assistance Associate Name Role Phone Ronen Greco MD Primary Care Provider Allergies Active Allergy Reactions Criticality Noted Date [...] Comments Blood Pressure 124/84 05/13/2023 9:57 PM [facility] Pulse 61 05/13/2023 9:57 PM [facility]OSP[facility] Temperature 36.8 C (98.2 F) 05/13/2023 5:28 PM [facility] Respiratory Rate 17 05/13/2023 9:57 PM [facility]OSPICE Oxygen Saturation 100% 05/13/2023 9:57 PM [facility] Inhaled Oxygen Concentration - - Weight 72.6 kg (160 lb) 05/13/2023 5:28 PM [facility] Height 162.6 cm (5' 4) 05/13/2023 5:28 PM [facility] Body Mass Index 27.46 05/13/2023 5:28 PM [facility]ARE [facility]OSP[facility] Plan of Treatment Health Maintenance Due Date [...] C. trachomatis RNA NOT DETECTED NOT DETECTED [email or web address] N. gonorrhoeae RNA NOT DETECTED NOT DETECTED [email or web address] Comment [email or web address] Comment: The analytical performance characteristics of this assay, when used to test SurePath(TM) specimens have been determined by [email or web address]. The modifications have not been cleared or approved by the FDA. This assay has been validated pursuant to the CLIA regulations and is used for clinical purposes. For additional information, please refer to https://education.Zoove/faq/TJL418 (This link is being provided for information/ educational purposes only.) Urine (None) 01/21/2021 12:1 2 PM CDT 01/22/2021 8:16 AM CDT us [facility] ORDERABLES Final Result [place] [id number] [address] [phone] from Last 3 Months or Most Recently Relevant to Health Maintenance Insurance [facility] [place] Care Teams Customer Assistance Associate Relationship Specialty Start Date End Date Ronen Greco MD PCP - General Family Medicine 05/13/23
== END 2025-04-08 12:06 | disposition home or self-care (01) ==
PROVIDERS: Emergency Provider Physician Assistant; PCP Family Medicine
DX: O20.9 Hemorrhage in early pregnancy, unspecified (principal); Z3A.01 Less than 8 weeks gestation of pregnancy
CPT/HCPCS: 36415; 76801; 76817; 80053; 81001; 81025; 84702; 85025; 85461; 85610; 85730; 86850; 86900; 86901; 87086; 99284

== ENCOUNTER 2025-04-09 13:56 | Emergency (ER) | payer MEDICAID, SELFPAY ==
--- NOTE | ~2025-04-09 | US_ITS ---
US OB transvaginal INDICATION:vaginal bleeding, decrease level of HCG since yest COMPARISON: None. TECHNIQUE: Transabdominal and transvaginal ultrasound of the pelvis was performed. FINDINGS: The uterus measures 8.5 x 3.3 x 4.4 cm. Endometrium is thickened. No intrauterine is identified. Bilateral ovaries are not visualized. The ovaries are normal in appearance. No adnexal masses are seen. No pelvic fluid or mass is seen. IMPRESSION: Thickened endometrium. No intrauterine identified. Reviewed, dictated and finalized at location S.
[2025-04-09 14:00] VITALS: BP 142/81; PULSE 87; RESP 16; TEMP 37; O2SAT 100
--- NOTE | 2025-04-09 15:39 | ED_ITS ---
HPI - General Chief complaint: Vaginal Bleeding <Erick Curtis APRN - Last Filed: 04/09/25 19:05> Stated complaint: preg, vag bleeding <Erick Curtis APRN - Last Filed: 04/09/25 19:05> Time Seen by Provider: 04/09/25 15:38 <Erick Curtis APRN - Last Filed: 04/09/25 19:05> Source: patient <Erick Curtis APRN - Last Filed: 04/09/25 19:05> Mode of arrival: ambulatory <Erick Curtis APRN - Last Filed: 04/09/25 19:05> Limitations: no limitations <Erick Curtis APRN - Last Filed: 04/09/25 19:05> History of Present Illness HPI Narrative: Nevin is a 24-year-old female patient presenting to the clinic today with complaints vaginal bleeding during . Last menstrual period was either on February 21 or February 22. States she started spotting yesterday and came into the ER. She stated that her hCG level was high and they wanted her to have a repeat hCG level tomorrow. Patient reports that she is having increase in bleeding and noticed some clots in the toilet toilet. She is having some abdominal cramping. Denies any fever or chills. <Erick Curtis APRN - Last Filed: 04/09/25 19:05> Related Data Allergies/Adverse reactions: Allergies Allergy/AdvReac Type Severity Reaction Status Date / Time No Known Allergies Allergy Verified 09/01/24 11:47 <Erick Curtis APRN - Last Filed: 04/09/25 19:05> Review of Systems 2 Review of Systems: Pertinent positives per HPI. Patient denies any fever, chills, rash, headache, visual changes, dizziness, cough, runny nose, sore throat, shortness of breath, chest pain, palpitations, nausea, vomiting, diarrhea, constipation, or any urinary issues. <Erick Curtis APRN - Last Filed: 04/09/25 19:05> PMF Past Medical History Medical History: Medical History No significant past medical history No active medical problems <Erick Curtis APRN - Last Filed: 04/09/25 19:05> Surgical History Surgical History: Surgical History No significant past surgical history <Erick Curtis APRN - Last Filed: 04/09/25 19:05> Family History Family History: Family History Other No significant family history <Erick Curtis APRN - Last Filed: 04/09/25 19:05> Social History Social History: Social History Smoking status: Never smoker Alcohol intake: never Substance use: current Substance use type: marijuana Living arrangements: with family Occupation/Education: occupation <Erick Curtis APRN - Last Filed: 04/09/25 19:05> Exam 2 Narrative: General: Well-developed, well nourished, in no apparent distress. Head: Normocephalic, atraumatic. Cardio: Regular rate and rhythm, s1 and s2 normal, no murmur appreciated. Resp: Clear to auscultation bilaterally, no rhonchi, rales, wheezing or rubs. Abdomen: Soft, pliable, bowel sounds present in all quadrants, lower abdomen- tender to palpation, no organomegly, no CVAT tenderness. : Deferred <Erick Curtis APRN - Last Filed: 04/09/25 19:05> Course Vital Signs Vital signs: Vital Signs Temperature 37.0 C 04/09/25 14:00 Pulse Rate 87 04/09/25 14:00 Respiratory Rate 16 04/09/25 14:00 Blood Pressure 142/81 H 04/09/25 14:00 Pulse Oximetry 100 04/09/25 14:00 Oxygen Delivery Room Air 04/09/25 14:00 Temperature 37.0 C 04/09/25 19:03 Pulse Rate 82 04/09/25 19:03 Respiratory Rate 16 04/09/25 19:03 Blood Pressure 128/87 04/09/25 19:03 Pulse Oximetry 100 04/09/25 19:03 Oxygen Delivery Room Air 04/09/25 14:00 <Erick Curtis, SEGMENTAL PAVER INSTALLER - Last Filed: 04/09/25 19:05> Vital Signs Temperature 37.0 C 04/09/25 14:00 Pulse Rate 87 04/09/25 14:00 Respiratory Rate 16 04/09/25 14:00 Blood Pressure 142/81 H 04/09/25 14:00 Pulse Oximetry 100 04/09/25 14:00 Oxygen Delivery Room Air 04/09/25 14:00 Temperature 37.0 C 04/09/25 19:03 Pulse Rate 82 04/09/25 19:03 Respiratory Rate 16 04/09/25 19:03 Blood Pressure 128/87 04/09/25 19:03 Pulse Oximetry 100 04/09/25 19:03 Oxygen Delivery Room Air 04/09/25 14:00 <Akiko Caputo, SEGMENTAL PAVER INSTALLER - Last Filed: 04/09/25 19:56> MDM - OB/Uterine Contractions MDM Narrative Medical decision making narrative: At the time of visit patient is resting comfortably on the exam table. Patient appears to be nontoxic. Complaints vaginal bleeding during . Last menstrual period was either on February 21 or February 22. States she started spotting yesterday and came into the ER. She stated that her hCG level was high and they wanted her to have a repeat hCG level tomorrow. Patient reports that she is having increase in bleeding and noticed some clots in the toilet toilet. She is having some abdominal cramping. Had ultrasound completed yesterday with results of 1. 2 mm cystic structure positioned eccentrically within the endometrial complex most likely representing an intrauterine gestational sac but without visible yolk sac or pole likely due to early stage of . In the absence however definitive findings of a gestational sac could not absolutely exclude pseudosac in the setting of an ectopic . 2. Gestational age by ultrasound of 4 weeks 6 day(s) with ultrasound estimated date of delivery (PITA) of 12/10/2025.. Labs: CBC shows white blood cell count of 6, H&H of 13.6 and 41.3, platelet count 377, anti coagulation studies within normal limits chemistry profile is within normal limits, beta hCG is 182 0.16 which is down from yesterday's 518.76. Blood type is B positive, antibody screen is negative. Diagnostics: OB ultrasound on 04/08/25 shows 1. 2 mm cystic structure positioned eccentrically within the endometrial complex most likely representing an intrauterine gestational sac but without visible yolk sac or pole likely due to early stage of . In the absence however definitive findings of a gestational sac could not absolutely exclude pseudosac in the setting of an ectopic . 2. Gestational age by ultrasound of 4 weeks 6 day(s) with ultrasound estimated date of delivery (PITA) of 12/10/2025 OB ultrasound completed today- awaiting on results. Plan: Suspect patient likely is having a miscarriage. Old results and new results were reviewed with that patient. HCG has gone from 518 down to 182. Patient is having vaginal bleeding with clots. Recommend repeat hCG in 48 hours. Follow up with OBGYN as discussed. Sign out to Akiko Caputo RESOURCE PROTECTION SPECIALIST at 1900- Report was given for continuity of care. Awaiting US results. <Erick Curtis APRN - Last Filed: 04/09/25 19:05> At the time of visit patient is resting comfortably on the exam table. Patient appears to be nontoxic. Complaints vaginal bleeding during . Last menstrual period was either on February 21 or February 22. States she started spotting yesterday and came into the ER. She stated that her hCG level was high and they wanted her to have a repeat hCG level tomorrow. Patient reports that she is having increase in bleeding and noticed some clots in the toilet toilet. She is having some abdominal cramping. Had ultrasound completed yesterday with results of 1. 2 mm cystic structure positioned eccentrically within the endometrial complex most likely representing an intrauterine gestational sac but without visible yolk sac or pole likely due to early stage of . In the absence however definitive findings of a gestational sac could not absolutely exclude pseudosac in the setting of an ectopic . 2. Gestational age by ultrasound of 4 weeks 6 day(s) with ultrasound estimated date of delivery (PITA) of 12/10/2025.. Labs: CBC shows white blood cell count of 6, H&H of 13.6 and 41.3, platelet count 377, anti coagulation studies within normal limits chemistry profile is within normal limits, beta hCG is 182 0.16 which is down from yesterday's 518.76. Blood type is B positive, antibody screen is negative. Diagnostics: OB ultrasound on 04/08/25 shows 1. 2 mm cystic structure positioned eccentrically within the endometrial complex most likely representing an intrauterine gestational sac but without visible yolk sac or pole likely due to early stage of . In the absence however definitive findings of a gestational sac could not absolutely exclude pseudosac in the setting of an ectopic . 2. Gestational age by ultrasound of 4 weeks 6 day(s) with ultrasound estimated date of delivery (PITA) of 12/10/2025 OB ultrasound completed today- awaiting on results. Plan: Suspect patient likely is having a miscarriage. Old results and new results were reviewed with that patient. HCG has gone from 518 down to 182. Patient is having vaginal bleeding with clots. Recommend repeat hCG in 48 hours. Follow up with OBGYN as discussed. Sign out to Akiko Caputo RESOURCE PROTECTION SPECIALIST at 1900- Report was given for continuity of care. Awaiting US results. Patient Education/Shared MDM: Results of lab work and imaging shared with patient. She is requesting pain medication at this time. Pt will be given a dose of Toradol IM. She was strongly advised to follow-up with her OBGYN as soon as possible. She will not be discharged home with any new prescriptions. Strict return precautions provided. Patient verbalized understanding and is in agreement with plan. Vital signs stable at time of discharge. All questions answered. <Akiko Caputo, SEGMENTAL PAVER INSTALLER - Last Filed: 04/09/25 19:56> Differential Diagnosis Differential diagnosis: Likely other (Spontaneous miscarriage, vaginal bleeding, early bleeding with ) <Erick Curtis SEGMENTAL PAVER INSTALLER - Last Filed: 04/09/25 19:05> Lab Data Attestation: I reviewed the patient's lab results. <Akiko Caputo APRN - Last Filed: 04/09/25 19:56> Result diagrams: 04/09/25 16:22 04/09/25 16:22 <Erick Curtis SEGMENTAL PAVER INSTALLER - Last Filed: 04/09/25 19:05> Labs: Lab Results 04/09/25 04/09/25 Range/Units 16:21 16:22 WBC 6.0 (4.5-10.0) K/mm3 RBC 4.70 (4.2-5.4) M/mm3 Hgb 13.6 (12.0-15.0) g/dL Hct 41.3 (37.0-47.0) % MCV 87.9 (80-100) fl MCH 28.9 (26-34) pg MCHC 32.9 (32-36) g/dl RDW 13.9 (11.5-14.5) % Plt Count 377 H (150-375) k/mm3 MPV 9.2 (7.4-10.4) fl Immature Gran % (Auto) 0.2 (0-0.5) % Neut % (Auto) 67.3 (45.5-73.1) % Lymph % (Auto) 24.3 (18.3-44.2) % [place] % (Auto) 7.5 (2.6-8.5) % Eos % (Auto) 0.5 (0-4.4) % Baso % (Auto) 0.2 (0.2-1.2) % Lymph # (Auto) 1.46 (0.9-3.2) K/mm3 [place] # (Auto) 0.5 (0.1-0.6) K/mm3 Eos # (Auto) 0.0 (0-0.3) K/mm3 Baso # (Auto) 0.0 (0.0-0.1) K/mm3 Abs Immat Gran (auto) 0.01 (0.00-0.031) K/mm3 Absolute Neuts (auto) 4.1 (1.3-6.7) K/mm3 Absolute Nucleated RBC 0.000 (0.0-0.012) K/mm3 Nucleated RBC % 0.0 (0.0-0.2) % PT 13.9 (11.1-14.7) Seconds INR 1.1 APTT 24.2 (22.3-36.8) Seconds Sodium 137 (137-145) mmol/L Potassium 4.3 (3.4-5.0) mmol/L Chloride 106 (98-107) mmol/L Carbon Dioxide 22 (22-30) mmol/L Anion Gap 9 (4-12) mmol/L BUN 13 (7-17) mg/dL Creatinine 0.64 L (0.7-1.0) mg/dL Estim Creat Clear Calc 121 ml/min Estimated GFR > 60 (59 - ) Glucose 84 (65-110) mg/dL Calcium 8.9 (8.4-10.2) mg/dL Total Bilirubin 0.5 (0.2-1.3) mg/dL AST 33 (14-36) U/L ALT 16 (6-35) U/L Alkaline Phosphatase 80 (38-126) U/L Total Protein 8.3 H (6.3-8.2) g/dL Albumin 4.2 (3.5-5.1) g/dL Beta HCG, Quant 182.16 mIU/ML Blood Type B Positive Antibody Screen Negative Screen Not Reportable Baby's Blood Type Not Reportable Baby's BIBIANA Not Reportable Doses of RhIg Required 0 <Erick Curtis, SEGMENTAL PAVER INSTALLER - Last Filed: 04/09/25 19:05> Lab Results 04/09/25 04/09/25 Range/Units 16:21 16:22 WBC 6.0 (4.5-10.0) K/mm3 RBC 4.70 (4.2-5.4) M/mm3 Hgb 13.6 (12.0-15.0) g/dL Hct 41.3 (37.0-47.0) % MCV 87.9 (80-100) fl MCH 28.9 (26-34) pg MCHC 32.9 (32-36) g/dl RDW 13.9 (11.5-14.5) % Plt Count 377 H (150-375) k/mm3 MPV 9.2 (7.4-10.4) fl Immature Gran % (Auto) 0.2 (0-0.5) % Neut % (Auto) 67.3 (45.5-73.1) % Lymph % (Auto) 24.3 (18.3-44.2) % [place] % (Auto) 7.5 (2.6-8.5) % Eos % (Auto) 0.5 (0-4.4) % Baso % (Auto) 0.2 (0.2-1.2) % Lymph # (Auto) 1.46 (0.9-3.2) K/mm3 [place] # (Auto) 0.5 (0.1-0.6) K/mm3 Eos # (Auto) 0.0 (0-0.3) K/mm3 Baso # (Auto) 0.0 (0.0-0.1) K/mm3 Abs Immat Gran (auto) 0.01 (0.00-0.031) K/mm3 Absolute Neuts (auto) 4.1 (1.3-6.7) K/mm3 Absolute Nucleated RBC 0.000 (0.0-0.012) K/mm3 Nucleated RBC % 0.0 (0.0-0.2) % PT 13.9 (11.1-14.7) Seconds INR 1.1 APTT 24.2 (22.3-36.8) Seconds Sodium 137 (137-145) mmol/L Potassium 4.3 (3.4-5.0) mmol/L Chloride 106 (98-107) mmol/L Carbon Dioxide 22 (22-30) mmol/L Anion Gap 9 (4-12) mmol/L BUN 13 (7-17) mg/dL Creatinine 0.64 L (0.7-1.0) mg/dL Estim Creat Clear Calc 121 ml/min Estimated GFR > 60 (59 - ) Glucose 84 (65-110) mg/dL Calcium 8.9 (8.4-10.2) mg/dL Total Bilirubin 0.5 (0.2-1.3) mg/dL AST 33 (14-36) U/L ALT 16 (6-35) U/L Alkaline Phosphatase 80 (38-126) U/L Total Protein 8.3 H (6.3-8.2) g/dL Albumin 4.2 (3.5-5.1) g/dL Beta HCG, Quant 182.16 mIU/ML Blood Type B Positive Antibody Screen Negative Screen Not Reportable Baby's Blood Type Not Reportable Baby's BIBIANA Not Reportable Doses of RhIg Required 0 <Akiko Caputo APRN - Last Filed: 04/09/25 19:56> Imaging Data Attestation: I personally reviewed and interpreted this imaging study as follows: < Akiko Caputo APRN - Last Filed: 04/09/25 19:56> Radiologist's impression: Impressions Transvaginal US 04/09/25 19:21 IMPRESSION: Thickened endometrium. No intrauterine identified. <Akiko Caputo, SEGMENTAL PAVER INSTALLER - Last Filed: 04/09/25 19:56> Discharge Plan Discharge Clinical Impression: Vaginal bleeding, Incomplete miscarriage <Erick Curtis APRN - Last Filed: 04/09/25 19:05> Patient Disposition: Home <Erick Curtis APRN - Last Filed: 04/09/25 19:05> Condition: Stable <Erick Curtis APRN - Last Filed: 04/09/25 19:05> Instructions: Antibiotic Form, Miscarriage (ED) <Erick Curtis APRN - Last Filed: 04/09/25 19:05> Additional Instructions: Beta hCG has gone from 518 down to 182. Repeat HCQ in 48 hours Increase your fluids and stay well hydrated. May take tylenol for pain or fever. Follow up with your OBGYN provider for results. <Erick Curtis APRN - Last Filed: 04/09/25 19:05> Patient Language: Mohawk <Erick Curtis APRN - Last Filed: 04/09/25 19:05> Prescriptions: No Action fluticasone propionate [Flonase Allergy Relief] 50 mcg/actuation spray,suspension 1 spray intranasal DAILY Qty: 16 2RF Rx Instructions: administer into each nostril <Erick Curtis APRN - Last Filed: 04/09/25 19:05> Other Ambulatory Orders: Beta HCG Quantitative (Routine) Timeframe: 2 Days Location: Determined by Patient Ordered By: Erick Curtis <Erick Curtis APRN - Last Filed: 04/09/25 19:05> Follow-up/Referrals: Ronen Blanton MD [Physician, ROLL OFF DRIVER] Carter Carbajal MD [Physician, ROLL OFF DRIVER] Angus,Ronen Guillen MD [Primary Care Provider] <Erick Curtis APRN - Last Filed: 04/09/25 19:05> Stand Alone Forms: Work/School Release IP <Erick Curtis APRN - Last Filed: 04/09/25 19:05> Time of Disposition: 19:56 <Erick Curtis APRN - Last Filed: 04/09/25 19:05> 19:56 <Akiko Caputo APRN - Last Filed: 04/09/25 19:56>
--- OUTSIDE RECORDS SUMMARY | 2025-04-09 15:39 | XMS_ITS | Clinical Summary ---
Author Organization [facility] Health Address [address] [place] [address] Care Team Providers Care Booking Police Officer Name Role Phone AntoninodiyaSupriya kaur Natty MARSN-CITY PLANNING AIDE Primary Care Provider + Source Comments [facility],non-owned Affiliates and Associated Physician Practices is amultiple site organization consisting of ambulatory clinics and hospital sitesin [place], [place], [place] and [place]. This disclosure is being madepursuant to the Care Everywhere program and may not contain all information available regarding this patient. Last updated 18.[facility] Allergies No known active allergies Social History [...] age to complete this topic Care Teams Booking Police Officer Relationship Specialty Start Date End Date Supriya Brandon, FAUCET POLISHER-CITY PLANNING AIDE [address] [place] [address] PCP - General Nurse Practitioner 08/19/14
--- OUTSIDE RECORDS SUMMARY | 2025-04-09 15:39 | XMS_ITS | Clinical Summary ---
Author Organization [facility] Chipiselastanley valencia [facility] Address [address] [place] [address] Care Team Providers Care Transaction Manager Name Role Phone Provider, Abstract Aok Primary [...] 2022 INFLUENZA VACCINE (#1) 2025 Care Teams Transaction Manager Relationship Specialty Start Date End Date Provider, Abstract Aok NO ADDRESS ON FILE PCP - General Family Practice 12/10/19
--- OUTSIDE RECORDS SUMMARY | 2025-04-09 15:39 | XMS_ITS | Clinical Summary ---
Author Organization [facility] Address [address] [place] [id number] Care Team Providers Care Certified Medical Records Coder Name Role Phone Ronen Greco MD Primary Care Provider [phone] Allergies Active Allergy Reactions Criticality Noted Date [...] Comments Blood Pressure 124/84 05/13/2023 9:57 PM WIRE FRAME MAKER Pulse 61 05/13/2023 9:57 PM WIRE FRAME MAKER Temperature 36.8 C (98.2 F) 05/13/2023 5:28 PM WIRE FRAME MAKER Respiratory Rate 17 05/13/2023 9:57 PM WIRE FRAME MAKER Oxygen Saturation 100% 05/13/2023 9:57 PM WIRE FRAME MAKER Inhaled Oxygen Concentration - - Weight 72.6 kg (160 lb) 05/13/2023 5:28 PM WIRE FRAME MAKER Height 162.6 cm (5' 4) 05/13/2023 5:28 PM WIRE FRAME MAKER Body Mass Index 27.46 05/13/2023 5:28 PM WIRE FRAME MAKER Plan of Treatment Health Maintenance Due Date [...] C. trachomatis RNA NOT DETECTED NOT DETECTED [employer]- Andre N. gonorrhoeae RNA NOT DETECTED NOT DETECTED [employer]- Andre Comment [employer]- Andre Comment: The analytical performance characteristics of this assay, when used to test SurePath(TM) specimens have been determined by [employer]. The modifications have not been cleared or approved by the FDA. This assay has been validated pursuant to the CLIA regulations and is used for clinical purposes. For additional information, please refer to https://education.Synack/faq/NBA168 (This link is being provided for information/ educational purposes only.) Urine (None) 01/21/2021 12:1 2 PM CDT 01/22/2021 8:16 AM CDT us [facility] - [facility] ORDERABLES Final Result [place] [id number] [address] [phone] from Last 3 Months or Most Recently Relevant to Health Maintenance [facility] [place] Care Teams Certified Medical Records Coder Relationship Specialty Start Date End Date Ronen Greco MD PCP - General Family Medicine 05/13/23
[2025-04-09 16:33] LABS: Hematocrit 41.3 % (37.0-47.0); Hemoglobin 13.6 g/dL (12.0-15.0); Immature Granulocyte Percent A 0.2 % (0-0.5); Lymphocytes Absolute Auto 1.46 K/mm3 (0.9-3.2); Mean Corpuscular HGB Conc 32.9 g/dl (32-36); Mean Corpuscular Hemoglobin 28.9 pg (26-34); Mean Corpuscular Volume 87.9 fl (80-100); Nucleated Red Blood Cells Absolute Auto 0.000 K/mm3 (0.0-0.012); Nucleated Red Blood Cells Perc 0.0 % (0.0-0.2); Platelet Count Result 377 k/mm3 (150-375); Red Blood Count 4.70 M/mm3 (4.2-5.4); White Blood Count 6.0 K/mm3 (4.5-10.0)
[2025-04-09 16:46] LABS: Alanine Aminotransferase 16 U/L (6-35); Albumin Level 4.2 g/dL (3.5-5.1); Alkaline Phosphatase 80 U/L (38-126); Anion Gap 9 mmol/L (4-12); Aspartate Amino Transferase 33 U/L (14-36); Bilirubin,Total 0.5 mg/dL (0.2-1.3); Blood Urea Nitrogen 13 mg/dL (7-17); Calcium 8.9 mg/dL (8.4-10.2); Carbon Dioxide 22 mmol/L (22-30); Chloride 106 mmol/L (98-107); Estimated CRCL calculation 121 ml/min; Estimated Glomerular Filt Rate > 60; Glucose 84 mg/dL (65-110); Potassium 4.3 mmol/L (3.4-5.0); Sodium 137 mmol/L (137-145); Total Protein 8.3 g/dL (6.3-8.2)
[2025-04-09 16:55] LABS: INR 1.1; Partial Thromboplastin Time 24.2 Seconds (22.3-36.8); Prothrombin Time 13.9 Seconds (11.1-14.7)
[2025-04-09 16:59] LABS: Beta HCG Quantitative 182.16 mIU/ML
--- OUTSIDE RECORDS SUMMARY | 2025-04-09 17:46 | XMS_ITS | Clinical Summary ---
Author Organization [facility] Address [address] [place] [id number] Care Team Providers Care Horse Groomer Name Role Phone Ronen Greco MD Primary Care Provider [phone] Allergies Active Allergy Reactions Criticality Noted Date [...] Comments Blood Pressure 124/84 05/13/2023 9:57 PM PAPER RECLAIMING MACHINE OPERATOR Pulse 61 05/13/2023 9:57 PM PAPER RECLAIMING MACHINE OPERATOR Temperature 36.8 C (98.2 F) 05/13/2023 5:28 PM PAPER RECLAIMING MACHINE OPERATOR Respiratory Rate 17 05/13/2023 9:57 PM PAPER RECLAIMING MACHINE OPERATOR Oxygen Saturation 100% 05/13/2023 9:57 PM PAPER RECLAIMING MACHINE OPERATOR Inhaled Oxygen Concentration - - Weight 72.6 kg (160 lb) 05/13/2023 5:28 PM PAPER RECLAIMING MACHINE OPERATOR Height 162.6 cm (5' 4) 05/13/2023 5:28 PM PAPER RECLAIMING MACHINE OPERATOR Body Mass Index 27.46 05/13/2023 5:28 PM PAPER RECLAIMING MACHINE OPERATOR Plan of Treatment Health Maintenance Due Date [...] C. trachomatis RNA NOT DETECTED NOT DETECTED [employer]- Andre N. gonorrhoeae RNA NOT DETECTED NOT DETECTED [employer]- Andre Comment [employer]- Andre Comment: The analytical performance characteristics of this assay, when used to test SurePath(TM) specimens have been determined by [employer]. The modifications have not been cleared or approved by the FDA. This assay has been validated pursuant to the CLIA regulations and is used for clinical purposes. For additional information, please refer to https://education.CoreFlow/faq/AFX479 (This link is being provided for information/ educational purposes only.) Urine (None) 01/21/2021 12:1 2 PM CDT 01/22/2021 8:16 AM CDT us [facility] - [facility] ORDERABLES Final Result [place] [id number] [address] [phone] from Last 3 Months or Most Recently Relevant to Health Maintenance Insurance [facility] [facility] [place] Care Teams Horse Groomer Relationship Specialty Start Date End Date Ronen Greco MD PCP - General Family Medicine 05/13/23
--- OUTSIDE RECORDS SUMMARY | 2025-04-09 17:46 | XMS_ITS | Data Portability ---
Author Organization [facility] Address [address] [place] [address] Assessment Encounter Date Assessment Date Assessment LastModified by Organization Details LastModified Time 12/04/2019 12/04/2019 MICHEAL Tinoco, [facility] Not available 12/04/2019 17:58:52 Plan of Treatment Reminders Order Date Submit Date Provider Last Modified By Organization Details Last Modified Time Details Appointments None record ed. Lab iron + TIBC + ferrit in, serum 2022 023 [email or web address] [facility], [address] [place] [address], [address], [place], [address], 3 12:00:50 TSH, ultra- sensit eitan, serum 2022 023 [email or web address] [facility], [address] [place] [address], [facility], [place], [address], 3 12:00:50 CMP, serum or plasma 2022 023 [email or web address] [facility], [address] [place] [address], [facility], [place], [address], 3 18:08:51 calciu m, ionsvetlana d, quant ISE, serum or plasma 2022 023 [email or web address] [facility], [address] [place] [address], [address], [place], [address], 3 18:08:51 CBC w/ auto diff 2022 023 jwade [facility], [address] [place], [place] [address]fernando Brian, [address], [place], [address], 3 18:08:51 calciu m, ionize d, quant ISE, serum or plasma 2019 020 OMAIRA [facility], [address] [place], [place] [address]fernando Brian, [address], [place], [address], 0 20:08:17 bacter ial vagino sis panel, vagina l 2019 020 OMAIRA [facility] (Centralized Electronic Ordering - All Locations), Patient Can Go To The Location Of Their Choice, [facility] 0 11:38:17 CBC w/ auto diff 2019 020 OMAIRA [facility], [address] [place], [place] [address]fernando Brian, [address], [place], [address], 0 20:08:16 prolac tin, serum 2019 020 OMAIRA [facility], [address] [place], [place] [address]fernando Brian, [address], [place], [address], 0 20:08:16 TSH, ultra- sensit eitan, serum 2019 020 OMAIRA [facility], [address] [place], [place] [address]fernando Brian, [address], [place], [address], 0 16:10:05 lh + FSH, serum 2019 020 OMAIRA [facility], [address] [place], [place] [address]fernando Brian, [address], [place], [address], 0 16:10:02 prolac tin, serum 2019 020 OMAIRA [facility], [address], [address], [place], [address], 0 16:10:04 CT + NG + TV, DNA, urine/ swab 2019 020 OMAIRA [facility], [address] [facility] [address], [address], [place], [address], 0 16:10:02 Referral None record ed. Procedures None record ed. Surgeries None record ed. Imaging US, duplex , venous , lower extrem ity [address] Patient Access Centralized Scheduling, Centralized Scheduling, [address] [place], [address], 3 11:25:59 US, echoca rdiogr am [address] Patient Access Centralized Scheduling, Centralized Scheduling, [address] [place], [address], 3 10:55:18 Medication Orders triamc inolon e aceton bushra 0.1 % topica l ointme nt [address]/Pharmacy #[id number], [address] [facility] [place], [address], 3 12:00:50 triamc inolon e aceton bushra 0.1 % topica l ointme nt [address]/Pharmacy #[id number], [address] [facility], [place], [address], 3 18:08:51 diphen hydram ine 25 mg capsul e [address]/Pharmacy #[id number], [address], [place], [address], 3 18:08:51 Zithro max Z-Niranjan 250 mg tablet 2019 020 [email or web address] [facility] #[id number], [address], [place], [place], [id number], 1 16:23:34 noreth indron e 1 mg-eth inyl estrad iol 20 mcg (24)-i pablo 75 mg (4) tablet 2019 020 [email or web address] [facility] #[id number], [address], [place], [place], [id number], 0 15:32:09 Patient TargetsNo targets recorded. Patient Instructions Encounter Date Encounter Id Patient Instructions Last Modified By Organization Details Last Modified Time 03/30/2020 [id number] chlamydia: care instructions Not available 04/01/2020 14:09:56 12/14/2022 [id number] A healthy lifestyle: care instructions [email or web address] Not available 12/14/2022 18:08:51 Reason for Referral None Reported. Results Created Date Observation Date Name Description Value Unit Range Abnormal Flag Note LastModifiedBy Organization Detail LastModifiedTime 11/14/19 20 11/15/2019 CBC w/ auto diff WBC 2.8 x10e3 /uL 3.4-10 .8 below low normal Not Available [facility] ([facility]) [address] [place], [address], 11/15/2019 06:28:03 11/14/19 20 11/15/2019 CBC w/ auto diff RBC 4.42 x10e6 /uL 3.77-5 .28 Not Available [facility] ([facility]) [address] [place], [address], 11/15/2019 06:28:03 11/14/19 20 11/15/2019 CBC w/ auto diff hemoglobin 13.0 g/dL 11.1-1 5.9 Not Available [facility] ([facility]) [address] [facility], [place], [address], 11/15/2019 06:28:03 11/14/19 20 11/15/2019 CBC w/ auto diff hematocrit 39.8 % 34.0-4 6.6 Not Available [facility] ([facility]) [address] [facility], [place], [address], 11/15/2019 06:28:03 11/14/1911/15/2019 CBC w/ auto diff MCV 90 fL 79-97 Not Available [facility] ([facility]) [address] [facility], [place], [address], 11/15/2019 06:28:03 11/14/1911/15/2019 CBC w/ auto diff MCH 29.4 pg 26.6-3 3.0 Not Available [facility] ([facility]) [address] [facility], [place], [address], 11/15/2019 06:28:03 11/14/1911/15/2019 CBC w/ auto diff MCHC 32.7 g/dL 31.5-3 5.7 Not Available [facility] ([facility]) [address] [facility], [place], [address], 11/15/2019 06:28:03 11/14/1911/15/2019 CBC w/ auto diff RDW 12.4 % 11.7-1 5.4 Not Available [facility] ([facility]) [address] [facility], [place], [address], 11/15/2019 06:28:03 11/14/1911/15/2019 CBC w/ auto diff platelets 331 x10e3 /uL 150-45 0 Not Available [facility] ([facility]) [address] [place], [address], 11/15/2019 06:28:03 11/14/1911/15/2019 CBC w/ auto diff neutrophils 50 % not estab. Not Available [facility] ([facility]) [address] [place], [address], 11/15/2019 06:28:03 11/14/19 20 11/15/2019 CBC w/ auto diff lymphs 42 % not estab. Not Available [facility] ([facility]) [address] [place], [address], 11/15/2019 06:28:03 11/14/19 20 11/15/2019 CBC w/ auto diff monocytes 5 % not estab. Not Available [facility] ([facility]) [address] [place], [address], 11/15/2019 06:28:03 11/14/1911/15/2019 CBC w/ auto diff eos 2 % not estab. Not Available [facility] ([facility]) [address] [place], [address], 11/15/2019 06:28:03 11/14/1911/15/2019 CBC w/ auto diff basos 1 % not estab. Not Available [facility] ([facility]) [address] [facility], [place], [address], 11/15/2019 06:28:03 11/14/1911/15/2019 CBC w/ auto diff immature cells DRUM WORKER Not Available [facility] ([facility]) [address] [place], [address], 11/15/2019 06:28:03 11/14/1911/15/2019 CBC w/ auto diff neutrophils (absolute) 1.4 x10e3 /uL 1.4-7. 0 Not Available [facility] ([facility]) [address] [place], [address], 11/15/2019 06:28:03 11/14/1911/15/2019 CBC w/ auto diff lymphs (absolute) 1.2 x10e3 /uL 0.7-3. 1 Not Available [facility] ([facility]) [address] [facility], [place], [address], 11/15/2019 06:28:03 11/14/1911/15/2019 CBC w/ auto diff monocytes(ab solute) 0.2 x10e3 /uL 0.1-0. 9 Not Available [facility] ([facility]) [address] [facility], [place], [address], 11/15/2019 06:28:03 11/14/1911/15/2019 CBC w/ auto diff eos (absolute) 0.1 x10e3 /uL 0.0-0. 4 Not Available [facility] ([facility]) [address] [facility], [place], [address], 11/15/2019 06:28:03 11/14/1911/15/2019 CBC w/ auto diff baso (absolute) 0.0 x10e3 /uL 0.0-0. 2 Not Available [facility] ([facility]) [address] [facility], [place], [address], 11/15/2019 06:28:03 11/14/1911/15/2019 CBC w/ auto diff immature granulocytes 0 % not estab. Not Available [facility] ([facility]) [address] [facility], [place], [address], 11/15/2019 06:28:03 11/14/1911/15/2019 CBC w/ auto diff immature grans (abs) 0.0 x10e3 /uL 0.0-0. 1 Not Available [facility] ([facility]) [address] [facility], [place], [address], 11/15/2019 06:28:03 11/14/1911/15/2019 CBC w/ auto diff NRBC DRUM WORKER Not Available [facility] ([facility]) [address] [place], [address], 11/15/2019 06:28:03 11/14/19 20 11/15/2019 CBC w/ auto diff hematology comments: DRUM WORKER Not Available [facility] ([facility]) [address] [facility] [place], [address], 11/15/2019 06:28:03 11/14/19 20 11/15/2019 CMP, serum or plasm a glucose 83 mg/dL 65-99 Not Available [facility] ([facility]) [address] [facility] [place], [address], 11/15/2019 06:28:04 11/14/19 20 11/15/2019 CMP, serum or plasm a BUN 10 mg/dL 6-20 Not Available [facility] ([facility]) [address] [facility] [place], [address], 11/15/2019 06:28:04 11/14/1911/15/2019 CMP, serum or plasm a creatinine 0.68 mg/dL 0.57-1 .00 Not Available [facility] ([facility]) [address] [facility] [place], [address], 11/15/2019 06:28:04 11/14/19 20 11/15/2019 CMP, serum or plasm a eGFR if nonafricn AM 128 mL/mi n/1.7 3 >59 Not Available [facility] ([facility]) [address] [facility] [place], [address], 11/15/2019 06:28:04 11/14/1911/15/2019 CMP, serum or plasm a eGFR if africn AM 148 mL/mi n/1.7 3 >59 Not Available [facility] ([facility]) [address] [facility] [place], [address], 11/15/2019 06:28:04 11/14/19 20 11/15/2019 CMP, serum or plasm a BUN/creatini ne ratio 15 9-23 Not Available [facility] ([facility]) [address] [place], [address], 11/15/2019 06:28:04 11/14/1911/15/2019 CMP, serum or plasm a sodium 142 mmol/ L 134-14 4 Not Available [facility] ([facility]) [address] [facility] [place], [address], 11/15/2019 06:28:04 11/14/1911/15/2019 CMP, serum or plasm a potassium 3.9 mmol/ L 3.5-5. 2 Not Available [facility] ([facility]) [address] [place], [address], 11/15/2019 06:28:04 11/14/1911/15/2019 CMP, serum or plasm a chloride 102 mmol/ L 96-106 Not Available [facility] ([facility]) [address] [place], [address], 11/15/2019 06:28:04 11/14/1911/15/2019 CMP, serum or plasm a carbon dioxide, total 25 mmol/ L 20-29 Not Available [facility] ([facility]) [address] [place], [address], 11/15/2019 06:28:04 11/14/1911/15/2019 CMP, serum or plasm a calcium 8.1 mg/dL 8.7-10 .2 below low normal Not Available [facility] ([facility]) [address] [place], [address], 11/15/2019 06:28:04 11/14/1911/15/2019 CMP, serum or plasm a protein, total 6.9 g/dL 6.0-8. 5 Not Available [facility] ([facility]) [address] [place], [address], 11/15/2019 06:28:04 11/14/1911/15/2019 CMP, serum or plasm a albumin 3.9 g/dL 3.9-5. 0 Not Available [facility] ([facility] [address] [place] [place], [address], 11/15/2019 06:28:04 11/14/1911/15/2019 CMP, serum or plasm a globulin, total 3.0 g/dL 1.5-4. 5 Not Available [facility] ([facility] [address] [facility] [place], [address], 11/15/2019 06:28:04 11/14/1911/15/2019 CMP, serum or plasm a A/G ratio 1.3 1.2-2. 2 Not Available [facility] ([facility] [address] [place], [address], 11/15/2019 06:28:04 11/14/1911/15/2019 CMP, serum or plasm a bilirubin, total 0.4 mg/dL 0.0-1. 2 Not Available [facility] ([facility] [address] [facility] [place], [address], 11/15/2019 06:28:04 11/14/1911/15/2019 CMP, serum or plasm a alkaline phosphatase 53 IU/L 43-101 Not Available [facility] [address] [place] [place], [address], 11/15/2019 06:28:04 11/14/1911/15/2019 CMP, serum or plasm a AST (SGOT) 17 IU/L 0-40 Not Available [facility] ([facility] [address] [place] [place], [address], 11/15/2019 06:28:04 11/14/1911/15/2019 CMP, serum or plasm a ALT (SGPT) 9 IU/L 0-32 Not Available [facility] ([facility]) [address] [facility] [place], [address], 11/15/2019 06:28:04 12/05/19 20 12/07/2019 CT + NG + TV, DNA, urine /swab chlamydia by ROSELIA NEGATI VE negati ve Not Available [facility] ([facility]) [address] [place], [address], 12/09/2019 16:10:02 12/05/19 20 12/07/2019 CT + NG + TV, DNA, urine /swab gonococcus by ROSELIA NEGATI VE negati ve Not Available [facility] ([facility]) [address] [place], [address], 12/09/2019 16:10:02 12/05/19 20 12/07/2019 CT + NG + TV, DNA, urine /swab trich vag by ROSELIA NEGATI VE negati ve Not Available [facility] ([facility]) [address] [place], [address], 12/09/2019 16:10:02 12/05/19 20 12/06/2019 lh + FSH, serum LH 13.0 mIU/m L Adult Femal e: Folli cular phase 2.4 - 12.6 Ovula tion phase 14.0 - 95.6 Lutea l phase 1.0 - 11.4 Postm enopa usal 7.7 - 58.5 Not Available [facility] ([facility]) [address] [place], [address], 12/09/2019 16:10:02 12/05/19 20 12/06/2019 lh + FSH, serum FSH 7.8 mIU/m L Adult Femal e: Folli cular phase 3.5 - 12.5 Ovula tion phase 4.7 - 21.5 Lutea l phase 1.7 - 7.7 Postm enopa usal 25.8 - 134.8 Not Available [facility] ([facility]) [address] [place], [address], 12/09/2019 16:10:02 12/05/19 20 12/06/2019 vitam in D, 25-hy droxy + 1,25- dihyd aydee, serum vitamin D, 25-hydroxy 22.4 NG/mL 30.0-1 00.0 below low normal Vitam in D defic iency has been defin ed by the Insti tute of Medic ine and an Endoc rine Socie ty pract ice guide line as a level of serum 25-OH vitam in D less than 20 ng/mL (1,2) . The Endoc rine Socie ty went on to furth er defin e vitam in D insuf ficie ncy as a level betwe en 21 and 29 ng/mL (2). 1. IOM (Inst itute of Medic ine). 2010. Dieta ry refer ence carlie es for calci um and D. Charly maxwell [place]: [facility] . 2. Mack wilson MF, Fawn bee [place], Sarah Beth off-F rafaela i JEAN-BAPTISTE, et al. Evalu ation , treat ment, and preve ntion of vitam in D defic iency : an Endoc rine Socie ty clini malika pract ice guide line. JCEM. 2010; 96(7) :1911 -30. Not Available [facility] ([facility]) [address] [place], [address], 12/09/2019 16:10:03 12/05/19 20 12/09/2019 vitam in D, 25-hy droxy + 1,25- dihyd aydee, serum calcitriol(1 ,25 di-oh vit D) 54.6 pg/mL 19.9-7 9.3 Not Available [facility] ([facility]) [address] [place], [address], 12/09/2019 16:10:03 12/05/19 20 12/06/2019 PTH (para thyro id hormo ne), intac t + calci um, serum or plasm a calcium, ionized, serum 5.3 mg/dL 4.5-5. 6 Not Available [facility] ([facility]) [address] [place], [address], 12/09/2019 16:10:04 12/05/19 20 12/06/2019 PTH (para thyro id hormo ne), intac t + calci um, serum or plasm a PTH, intact 24 pg/mL 15 Not Available [facility] ([facility]) [address] [place], [address], 12/09/2019 16:10:04 12/05/19 20 12/06/2019 prola ctin, serum prolactin 61.4 NG/mL 4.8-23 .3 above high normal Not Available [facility] ([facility]) [address] [place], [address], 12/09/2019 16:10:04 12/05/19 20 12/06/2019 TSH, ultra -sens itive , serum TSH 3.130 uIU/m L 0.450- 4.500 Not Available [facility] ([facility]) [address] [place], [address], 12/09/2019 16:10:05 12/05/19 20 12/06/2019 phosp horus , serum or plasm a phosphorus 3.6 mg/dL 3.3-5. 1 Not Available [facility] ([facility]) [address] [place], [address], 12/09/2019 16:10:05 12/05/19 20 12/06/2019 magne sium, serum or plasm a magnesium 1.9 mg/dL 1.6-2. 3 Not Available [facility] ([facility]) [address] [place], [address], 12/09/2019 16:10:06 12/16/19 20 12/17/2019 prola ctin, serum prolactin 24.8 NG/mL 4.8-23 .3 above high normal Not Available [facility] ([facility]) [address] [place], [address], 12/17/2019 08:08:38 12/16/19 20 12/17/2019 vitam in D, 25-hy droxy + 1,25- dihyd aydee, serum vitamin D, 25-hydroxy 19.3 NG/mL 30.0-1 00.0 below low normal Vitam in D defic iency has been defin ed by the Insti tute of Medic ine and an Endoc rine Socie ty pract ice guide line as a level of serum 25-OH vitam in D less than 20 ng/mL (1,2) . The Endoc rine Socie ty went on to furth er defin e vitam in D insuf ficie ncy as a level betwe en 21 and 29 ng/mL (2). 1. IOM (Inst itute of Medic ine). 2010. Natividad ry refer ence carlie es for calci um and D. Charly maxwell [place]: [facility] . 2. Mack wilson MF, Fawn bee [place], Sarah Beth off-F rafaela i JEAN-BAPTISTE, et al. Evalu ation , treat ment, and preve ntion of vitam in D defic iency : an Endoc rine Socie ty clini malika pract ice guide line. JCEM. 2010; 96(7) :1911 -30. Not Available [facility] ([facility]) [address] [place], [address], 12/18/2019 16:10:52 12/16/1912/18/2019 vitam in D, 25-hy droxy + 1,25- dihyd aydee, serum calcitriol(1 ,25 di-oh vit D) 38.8 pg/mL 19.9-7 9.3 Not Available [facility] ([facility]) [address] [place], [address], 12/18/2019 16:10:52 12/16/1912/17/2019 PTH (para thyro id hormo ne), intac t + calci um, serum or plasm a calcium, ionized, serum 5.4 mg/dL 4.5-5. 6 Not Available [facility] ([facility]) [address] [place], [address], 12/18/2019 16:10:53 12/16/19 20 12/17/2019 PTH (para thyro id hormo ne), intac t + calci um, serum or plasm a PTH, intact 18 pg/mL 15-65 Not Available [facility] ([facility]) [address] [place], [address], 12/18/2019 16:10:53 12/16/19 20 12/17/2019 phosp horus , serum or plasm a phosphorus 3.9 mg/dL 3.3-5. 1 Not Available [facility] ([facility]) [address] [place], [address], 12/18/2019 16:10:53 12/16/19 20 12/17/2019 magne sium, serum or plasm a magnesium 1.9 mg/dL 1.6-2. 3 Not Available [facility] ([facility]) [address] [place], [address], 12/18/2019 16:10:54 03/04/20 20 03/05/2020 CBC w/ auto diff WBC 5.5 x10e3 /uL 3.4-10 .8 Not Available [facility] ([facility]) [address] [place], [address], 03/05/2020 20:08:15 03/04/20 20 03/05/2020 CBC w/ auto diff RBC 4.46 x10e6 /uL 3.77-5 .28 Not Available [facility] ([facility]) [address] [place], [address], 03/05/2020 20:08:15 03/04/20 20 03/05/2020 CBC w/ auto diff hemoglobin 13.1 g/dL 11.1-1 5.9 Not Available [facility] ([facility]) [address] [place], [address], 03/05/2020 20:08:15 03/04/20 20 03/05/2020 CBC w/ auto diff hematocrit 39.9 % 34.0-4 6.6 Not Available [facility] ([facility]) [address] [facility], [place], [address], 03/05/2020 20:08:15 03/04/20 20 03/05/2020 CBC w/ auto diff MCV 90 fL 79-97 Not Available [facility] ([facility]) [address] [facility], [place], [address], 03/05/2020 20:08:15 03/04/20 20 03/05/2020 CBC w/ auto diff MCH 29.4 pg 26.6-3 3.0 Not Available [facility] ([facility]) [address] [facility], [place], [address], 03/05/2020 20:08:15 03/04/20 20 03/05/2020 CBC w/ auto diff MCHC 32.8 g/dL 31.5-3 5.7 Not Available [facility] ([facility]) [address] [facility], [place], [address], 03/05/2020 20:08:15 03/04/20 20 03/05/2020 CBC w/ auto diff RDW 13.0 % 11.7-1 5.4 Not Available [facility] ([facility]) [address] [facility], [place], [address], 03/05/2020 20:08:15 03/04/20 20 03/05/2020 CBC w/ auto diff platelets 308 x10e3 /uL 150-45 0 Not Available [facility] ([facility]) [address] [facility], [place], [address], 03/05/2020 20:08:15 03/04/20 20 03/05/2020 CBC w/ auto diff neutrophils 65 % not estab. Not Available [facility] ([facility]) [address] [facility], [place], [address], 03/05/2020 20:08:15 03/04/20 20 03/05/2020 CBC w/ auto diff lymphs 27 % not estab. Not Available [facility] ([facility]) [address] [place], [address], 03/05/2020 20:08:15 03/04/20 20 03/05/2020 CBC w/ auto diff monocytes 7 % not estab. Not Available [facility] ([facility]) [address] [place], [address], 03/05/2020 20:08:15 03/04/20 20 03/05/2020 CBC w/ auto diff eos 1 % not estab. Not Available [facility] ([facility]) [address] [place], [address], 03/05/2020 20:08:15 03/04/20 20 03/05/2020 CBC w/ auto diff basos 0 % not estab. Not Available [facility] ([facility]) [address] [place], [address], 03/05/2020 20:08:15 03/04/20 20 03/05/2020 CBC w/ auto diff immature cells DRUM WORKER Not Available [facility] ([facility]) [address] [place], [address], 03/05/2020 20:08:15 03/04/20 20 03/05/2020 CBC w/ auto diff neutrophils (absolute) 3.5 x10e3 /uL 1.4-7. 0 Not Available [facility] ([facility]) [address] [place], [address], 03/05/2020 20:08:15 03/04/20 20 03/05/2020 CBC w/ auto diff lymphs (absolute) 1.5 x10e3 /uL 0.7-3. 1 Not Available [facility] ([facility]) [address] [place], [address], 03/05/2020 20:08:15 03/04/20 20 03/05/2020 CBC w/ auto diff monocytes(ab solute) 0.4 x10e3 /uL 0.1-0. 9 Not Available [facility] ([facility]) [address] [place], [address], 03/05/2020 20:08:15 03/04/20 20 03/05/2020 CBC w/ auto diff eos (absolute) 0.1 x10e3 /uL 0.0-0. 4 Not Available [facility] ([facility]) [address] [facility], [place], [address], 03/05/2020 20:08:15 03/04/20 20 03/05/2020 CBC w/ auto diff baso (absolute) 0.0 x10e3 /uL 0.0-0. 2 Not Available [facility] ([facility]) [address] [facility], [place], [address], 03/05/2020 20:08:15 03/04/20 20 03/05/2020 CBC w/ auto diff immature granulocytes 0 % not estab. Not Available [facility] ([facility]) [address] [place], [address], 03/05/2020 20:08:15 03/04/20 20 03/05/2020 CBC w/ auto diff immature grans (abs) 0.0 x10e3 /uL 0.0-0. 1 Not Available [facility] ([facility]) [address] [place], [address], 03/05/2020 20:08:15 03/04/20 20 03/05/2020 CBC w/ auto diff NRBC DRUM WORKER Not Available [facility] ([facility]) [address] [place], [address], 03/05/2020 20:08:15 03/04/20 20 03/05/2020 CBC w/ auto diff hematology comments: DRUM WORKER Not Available [facility] ([facility]) [address] [place], [address], 03/05/2020 20:08:15 03/04/20 20 03/05/2020 prola ctin, serum prolactin 24.7 NG/mL 4.8-23 .3 above high normal Not Available [facility] ([facility]) [address] [place], [address], 03/05/2020 20:08:16 03/04/20 20 03/05/2020 calci um, ioniz ed, quant ISE, serum or plasm a calcium, ionized, serum 5.3 mg/dL 4.5-5. 6 Not Available [facility] ([facility]) [address] [place], [address], 03/05/2020 20:08:17 03/12/20 20 03/14/2020 bacte rial vagin osis panel , vagin al trich vag by ROSELIA NEGATI VE negati ve Not Available [facility] ([facility]) [address] [place], [address], 03/17/2020 11:38:17 03/12/2003/14/2020 bacte rial vagin osis panel , vagin al chlamydia trachomatis, ROSELIA POSITI VE negati ve abnormal Not Available [facility] ([facility]) [address] [place], [address], 03/17/2020 11:38:17 03/12/2003/14/2020 bacte rial vagin osis panel , vagin al neisseria gonorrhoeae, ROSELIA NEGATI VE negati ve Not Available [facility] ([facility]) [address] [place], [address], 03/17/2020 11:38:17 03/12/2003/16/2020 bacte rial vagin osis panel , vagin al atopobium vaginae MODERA TE - 1 score Not Available [facility] ([facility]) [address] [place], [address], 03/17/2020 11:38:17 03/12/2003/16/2020 bacte rial vagin osis panel , vagin al bvab 2 HIGH - 2 score abnormal Not Available [facility] ([facility]) [address] [place], [address], 03/17/2020 11:38:17 03/12/2003/16/2020 bacte rial vagin osis panel , vagin al megasphaera 1 HIGH - 2 score abnormal Calcu late total score by bisi odom the 3 indiv idual bacte rial vagin osis (BV) marke r score s toget her. Total score is inter prete d as follo ws: Total score 0-1: Indic ates the absen ce of BV. Total score 2: Indet ermin ate for BV. Addit ional clini malika data shoul d be evalu ated to estab angela a diagn osis. Total score 3-6: Indic ates the prese nce of BV. This test was devel oped and its perfo rmanc e jaren cteri stics deter mined by [facility]. It has not been clear ed or appro swati by the Food and Drug Admin istra tion. The FDA has deter mined that such clear ance or appro bridget is not neces eric. Not Available [facility] ([facility]) [address] [facility], [place], [address], 03/17/2020 11:38:17 03/12/2003/16/2020 bacte rial vagin osis panel , vagin al juanita albicans, ROSELIA NEGATI VE negati ve Not Available [facility] ([facility]) [address] [place], [address], 03/17/2020 11:38:17 03/12/2003/16/2020 bacte rial vagin osis panel , vagin al juanita glabrata, ROSELIA NEGATI VE negati ve Not Available [facility] ([facility]) [address] [place], [address], 03/17/2020 11:38:17 03/12/2003/17/2020 bacte rial vagin osis panel , vagin al hsv 1 ROSELIA NEGATI VE negati ve Not Available [facility] ([facility]) [address] [place], [address], 03/17/2020 11:38:17 03/12/20 20 03/17/2020 bacte rial vagin osis panel , vagin al hsv 2 ROSELIA NEGATI VE negati ve Not Available [facility] ([facility]) [address] [place], [address], 03/17/2020 11:38:17 10/13/19 21 10/14/2020 bacte rial vagin osis + vagin itis panel , vagin al atopobium vaginae Low - 0 score Not Available [facility] ([facility]) [address] [place] [address], [address], 10/15/2020 16:12:01 10/13/19 21 10/14/2020 bacte rial vagin osis + vagin itis panel , vagin al bvab 2 Low - 0 score Not Available [facility] ([facility]) [address] [place] [address], [address], 10/15/2020 16:12:01 10/13/19 21 10/14/2020 bacte rial vagin osis + vagin itis panel , vagin al megasphaera 1 Low - 0 score Calcu late total score by bisi g the 3 indiv idual bacte rial vagin osis (BV) marke r score s toget her. Total score is inter prete d as follo ws: Total score 0-1: Indic ates the absen ce of BV. Total score 2: Indet ermin ate for BV. Addit ional clini malika data shoul d be evalu ated to estab angela a diagn osis. Total score 3-6: Indic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 [address] [phone] 0 12/04/2019 11:05:41 12/09/2019 06:49:58 Contraception care 298113250 Z30.40 Will try switching to monophasic 24 cycle OCPs to manage BTB. Consider increasing estrogen dose if BTB persists. RTC in 3 months. Irregular intermenstrual bleeding 21173282 N92.1 Patient advised intermenst rual bleeding has many different possible etiologies , including hormonal changes, hypothyroi dism, and infection. F/u labwork, OCPs management as above. [id number] DEBBY COTTRELL (DUCK OPERATOR) [address] [place] [phone] 0 03/04/2020 15:07:09 03/09/2020 08:37:57 Venereal disease screening 237026975 Z11.3 Pt requests STI testingShe would like to have the nuswab and declines the blood testing at this timeSafe sex practices discussed Hyperprolactinemia 2004 E22.1 Increased prolactin noted in previous labs (61.4 on 12/05/2019 and 24.8 on 12/16/2019)R epeat was ordered again todayPt was encouraged to get the MRI to evaluate pituitary Hypocalcemia 5268668 E83 .51 Calcium mildly decreased on previous labs, repeat today Leukopenia 45681689 D72. 819 WBC decreased on previous labs (2.8). No neutropeni a.Referral previously placed to hematologi st, pt has not followed upRepeat CBC today Paresthesi a of upper limb 12816974 R20.2 Intermitte nt numbness/t ingling in bilateral upper extremitie s.Pt has not completed MRI or EMG/NCSPre viously referred to neurology, encouraged to follow up Family alayna nning surveillance 950034283 Z30.09 Pt has not started OCPs as prescribed at last visit.Coun seled pt on different control options.Sh e is interested in starting contracept eitan but unsure which on at this time.Infor mational handouts and condoms provided. [id number] DEBBY COTTRELL (DUCK OPERATOR) [address] [place] [address] [phone] 0 03/30/2020 12:12:00 04/01/2020 14:12:48 Hyperprolactinemia 483922538 E22.1 Increased prolactin noted in previous labs (61.4 on 12/05/2019, 24.8 on 12/16/2019, 24.7 on 03/04). Pt taking cabergolin e for about 1 week, no side effects. She has not completed MRI pituitary. RTC in 1 month for retesting. Chlamydial infection 105 127463 A74.9 Positive 03/12. Pt threw up abx prescribed initially. Will treat with Z-niranjan. Advised to refrain from sexual contact. Partner to be tested and treated too. Safe sex practices. Retest in 2-3 months. [id number] Ronen Greco MD [facility] [address] [address] 12/14/2022 16:17:03 12/15/2022 09:38:35 Acne vulgaris 68038557 L70.0 conditon chocn adn a goal refil the triamcinal one cream with 5 refills Hypocalcemia 4990734 E83 .51 condition chroinc and at goal order cmp, calcium level. Leukopenia 46025603 D72. 819 condition chroinc and at goal order cbc Bilateral lower leg edema 765642222 R60.0 conditon chroinc and not at goal order echo, bilateral lower extremity venous doppler Insomnia 970061817 G47.0 0 condition chronc adn not at goal start benadryl 25 mg Obesity 095757601 E66.9 condition choinc and not at goal continue the low fat diet. [id number] Ronen Greco MD [facility] [address] [address] 05/16/2023 10:05:50 05/17/2023 12:58:04 Acne vulgaris 24251153 L70.0 conditon chocn adn a goal refill the triamcinal one tub Bilateral lower leg edema 651948179 R60.0 conditon chroinc and not at goal order echo, bilateral lower extremity venous doppler Hypocalcemia 1919606 E83 .51 condition chroinc and at goal continue supp calcium Mass of scalp 271005102 R22.0 conditno chroinc and this is normal as it is the forema magnum Fatigue 05074245 R53.83 conditon chronic and not at goal order iron panel, tsh Insomnia 984468818 G47.0 0 condition chronc adn not at goal start melatonin 10 mg Health Concerns Section Related Observation LastModified by Organization Detai ls LastModified Time None Recorded Concern Status LastModified by Organization Details LastModified Time None Recorded Advance Directives Directive N: Payers Insurance Date Sequence Insurance Name Policy Number Policy Lau Covered Member ID Lau Member ID Guarantor Name 06/08/2020 PAYMENT PLAN Chekita L Pointer 06/22/2018 SLIDING FEE SCHEDULE - DISCOUNT Chekita L Pointer 08/08/2018 SLIDING FEE SCHEDULE - DISCOUNT Chekita L Pointer 05/16/2023 SLIDING FEE SCHEDULE - DISCOUNT Chekita L Pointer 12/14/2022 2 [place] [facility] Dlauren Pointer [id number] Chekita L Pointer 12/14/2022 2 [place] [facility] Dlauren Pointer [id number] Chekita L Pointer 05/16/2023 1 [facility] ON OR AFTER 05/12/2020 (MEDICAID REPLACEMENT - HMO) Dlauren Pointer [id number] Chekita L Pointer 09/11/2019 SLIDING FEE SCHEDULE - DISCOUNT Chekita L Pointer 09/11/2019 SLIDING FEE SCHEDULE - DISCOUNT Chekita L Pointer 12/14/2022 2 [facility] (MEDICAID HMO) Dlauren Pointer [id number] Chekita L Pointer 05/16/2023 1 *SELF PAY* Ch ekita L Pointer 12/14/2022 1 [place] [facility] Dlauren Pointer [id number] Chekita L Pointer 05/17/2023 SLIDING FEE SCHEDULE - DISCOUNT Chekita L Pointer 12/14/2022 1 [facility] PRIOR TO 12/10/2020 (MEDICAID REPLACEMENT - HMO) Dlauren Pointer [id number] Chekita L Pointer 05/16/2023 1 *SELF PAY* Ch ekita L Pointer 12/14/2022 1 [place] [facility] Dlauren Pointer [id number] Chekita L Pointer 03/04/2020 1 *SELF PAY* Ch ekita L Pointer Notes Date Note Type Note Provider Name and Address Organization Details Recorded Time 12/04/2019 text/html Abnormal BleedingReported by PatientHPIFor onset/timing, patient reportsirregular (spotting between cycles). For duration, patient yusbnhp59-15 days/month. For quality, patient reportsspotting (3x between late october and mecca 15th). For context, patient reportsoccurs between normal cyclesandcurrent contraception: (ortho tri cyclen). For associated symptoms, patient reportsno pelvic pain,no abdominal pain,no urinary symptoms,no vaginal discharge, andno vaginal itching/irritation.ROS as noted in the HPI 19 yo F presents via phone for evaluation of intermenstrual bleeding. Patient states she had 3 periods in the last month. Patient describes the bleeding as light and reji to spotting; denies heavy flow. She states her last normal period was November 26, 2019. Patient reports she is taking Ortho Tri Cyclen regularly and not forgetting pills; patient started OCPs >6 months ago, and states she never experienced BTB before the past month. Patient denies numbness and tingling, vaginal odors, and abnormal discharge. DEBBY COTTRELL Attn: Accounting,[address] [place], [address], [facility] 12/06/2019 16:32:28 03/04/2020 text/html ROS as noted in the HPI 19 yo F with h/o hyperprolactinemia, leukopenia, hypocalcemia presents for STD testing. She reports that she has vaginal odor and would like to get STI tested. She has been sexually active but has not had relations with anyone that has tested positive for STIs. The pt reports that she was having two periods every month when she was on the pill and has since stopped taking the pill, November of this year. Since she stopped the BC, her periods have returned to normal. She was seen previously and was prescribed a new BC pill that she did not pickling machine operator. She has been sexually active and has been using condoms. She denies that she is at this time. She is interested in starting new BC but is unsure which she would like to start. Pt denies pelvic pain, dysuria, abnormal discharge, vaginal symptoms, n/v/f. She states that she continues to have intermittent numbness/tingling in her UE. She has not yet completed any imaging. DEBBY COTTERLL Attn: Accounting,[address] [facility], [place], [address], [facility] 03/08/2020 19:25:58 03/30/2020 text/html ROS as noted in the HPI 19yo F presents for test results. She states she tooks abx for chlamydia infection but threw them up. She denies pelvic pain, abnormal bleeding, n/v, fevers, galactorrhea, vision changes, headaches. DEBBY COTTRELL Attn: Accounting,[address] [facility], [place], [address], [facility] 04/01/2020 14:10:42 12/14/2022 text/html presents to the office for initial evaluatoin states that she has swelling in hte ankles chronically. has acne and the triamcinalone cream works. the insomnia is not under control and she has been watching her diet. no alleriges. has a history of low calcium Ronen Greco MD Attn: Accounting,[address] [facility], [place], [address], [facility] 12/14/2022 18:25:02 05/16/2023 text/html states that she has a hard bump on the back of her head and went to the er and the ct was normal. denies any pain at hte site. the insomnia is uner control the allergies are under control radha acne is under control the swelling in the legs is the same. radha hypocalcemia is under control has the fatigue and it is getting worse. Ronen Greco MD Attn: Accounting,[address] [facility], [place], [address], [facility] 05/16/2023 13:29:01 OBGyn Episode No OBEpisode recorded.
--- OUTSIDE RECORDS SUMMARY | 2025-04-09 17:46 | XMS_ITS | Clinical Summary ---
Author Organization [facility] Address [address] [place] [address] Care Team Providers Care Communication Clerk Name Role Phone AntoninodiyaSupriya kaur Natty MARSN-PUNCH CARD OPERATOR Primary Care Provider + Source Comments [facility],non-owned Affiliates and Associated Physician Practices is amultiple site organization consisting of ambulatory clinics and hospital sitesin [place], [place], [place] and [place]. This disclosure is being madepursuant to the Care Everywhere program and may not contain all information available regarding this patient. Last updated 18.[facility] [employer] Allergies No known active allergies Social History [...] age to complete this topic Care Teams Communication Clerk Relationship Specialty Start Date End Date Supriya Brandon, METHODS ENGINEER-PUNCH CARD OPERATOR [address] [place] [address] PCP - General Nurse Practitioner 08/19/14
--- OUTSIDE RECORDS SUMMARY | 2025-04-09 17:46 | XMS_ITS | Clinical Summary ---
Author Organization [facility] Chipiselastanley valencia [facility] Address [address] [place] [address] Care Team Providers Care Home Health Attendant Name Role Phone Provider, Abstract Aok Primary [...] 2022 INFLUENZA VACCINE (#1) 2025 Care Teams Home Health Attendant Relationship Specialty Start Date End Date Provider, Abstract Aok NO ADDRESS ON FILE PCP - General Family Practice 12/10/19
[2025-04-09 19:03] VITALS: BP 128/87; PULSE 82; RESP 16; TEMP 37; O2SAT 100
[2025-04-09] MEDS: KETOROLAC (*BKC) 60 MG/2 ML VIAL IM (20:02)
== END 2025-04-09 20:10 | disposition home or self-care (01) ==
PROVIDERS: Emergency Provider Nurse Practitioner Family; PCP Family Medicine
DX: O03.4 Incomplete spontaneous abortion without complication (principal)
CPT/HCPCS: 36415; 76817; 80053; 84702; 85025; 85461; 85610; 85730; 86850; 86900; 86901; 96372; 99284; J1885

== ENCOUNTER 2025-04-12 08:32 | Outpatient (CLI) | payer MEDICAID, SELFPAY ==
--- OUTSIDE RECORDS SUMMARY | 2025-04-12 08:42 | XMS_ITS | Clinical Summary ---
Author Organization [facility] Chipiselastanley valencia [facility] Address [address] [facility] [address] Care Team Providers Care Manufacturing Inspector Name Role Phone Provider, Abstract Aok Primary [...] 2022 INFLUENZA VACCINE (#1) 2025 Care Teams Manufacturing Inspector Relationship Specialty Start Date End Date Provider, Abstract Aok NO ADDRESS ON FILE PCP - General Family Practice 12/10/19
--- OUTSIDE RECORDS SUMMARY | 2025-04-12 08:42 | XMS_ITS | Clinical Summary ---
Author Organization [facility] Address [address] [place] [address] Care Team Providers Care Hot Knife Foxing Cutter Name Role Phone Ronen Greco MD Primary Care Provider [phone] Allergies Active Allergy Reactions Criticality Noted Date [...] Comments Blood Pressure 124/84 05/13/2023 9:57 PM [facility] Pulse 61 05/13/2023 9:57 PM [facility] Temperature 36.8 C (98.2 F) 05/13/2023 5:28 PM [facility] Respiratory Rate 17 05/13/2023 9:57 PM [facility] Oxygen Saturation 100% 05/13/2023 9:57 PM [facility] Inhaled Oxygen Concentration - - Weight 72.6 kg (160 lb) 05/13/2023 5:28 PM [facility] Height 162.6 cm (5' 4) 05/13/2023 5:28 PM [facility] Body Mass Index 27.46 05/13/2023 5:28 PM [facility] Plan of Treatment Health Maintenance Due Date [...] C. trachomatis RNA NOT DETECTED NOT DETECTED [facility] N. gonorrhoeae RNA NOT DETECTED NOT DETECTED [facility] Comment [facility] Comment: The analytical performance characteristics of this assay, when used to test SurePath(TM) specimens have been determined by [facility]. The modifications have not been cleared or approved by the FDA. This assay has been validated pursuant to the CLIA regulations and is used for clinical purposes. For additional information, please refer to https://education.Mirimus/faq/PFE277 (This link is being provided for information/ educational purposes only.) Urine (None) 01/21/2021 12:1 2 PM CDT 01/22/2021 8:16 AM CDT us [facility] - [facility] ORDERABLES Final Result [facility] [id number] [phone] from Last 3 Months or Most Recently Relevant to Health Maintenance [facility] [place] Care Teams Hot Knife Foxing Cutter Relationship Specialty Start Date End Date Ronen Greco MD PCP - General Family Medicine 05/13/23
--- OUTSIDE RECORDS SUMMARY | 2025-04-12 08:42 | XMS_ITS | Data Portability ---
[facility] Organization [facility] Address [address] [place] [address] Assessment Encounter Date Assessment Date Assessment LastModified by Organization Details LastModified Time 12/04/2019 12/04/2019 MICHEAL Tinoco, [facility] Not available 12/04/2019 17:58:52 Plan of Treatment Reminders Order Date Submit Date Provider Last Modified By Organization Details Last Modified Time Details Appointments None record ed. Lab iron + TIBC + ferrit in, serum 2022 023 [email or web address] [facility], [address] [place] [address], [address], [place], [address], 3 12:00:50 TSH, ultra- sensit eitan, serum 2022 023 [email or web address] [facility], [address] [facility], [facility] [address], [place], [address], 3 12:00:50 CMP, serum or plasma 2022 023 [email or web address] [facility], [address] [place] [address], [address], [place], [address], 3 18:08:51 calciu m, ionsvetlana d, quant ISE, serum or plasma 2022 023 [email or web address] [facility], [address] [place] [address], [address], [place], [address], 3 18:08:51 CBC w/ auto diff 2022 023 [email or web address] [facility], [address] [place], [place] [address]fernando Brian, [address], [place], [address], 3 18:08:51 calciu m, ionize d, quant ISE, serum or plasma 2019 020 OMAIRA [facility], [address] [place], [place] [address]fernando Brian, [address], [place], [address], 0 20:08:17 bacter ial vagino sis panel, vagina l 2019 020 OMAIRA [facility] (Centralized Electronic Ordering - All Locations), Patient Can Go To The Location Of Their Choice, [facility] 0 11:38:17 CBC w/ auto diff 2019 020 OMAIRA [facility], [address] [place], [place] [address]fernando Brian, [address], [place], [address], 0 20:08:16 prolac tin, serum 2019 020 OMAIRA [facility], [address] [place], [place] [address]fernando Brian, [address], [place], [address], 0 20:08:16 TSH, ultra- sensit eitan, serum 2019 020 OMAIRA [facility], [address] [place], [place] [address]fer[address]ando Brian, [address], [place], [address], 0 16:10:05 lh + FSH, serum 2019 020 OMAIRA [facility], [address] [place], [place] [address]fer[address] Brian, [address], [place], [address], 0 16:10:02 prolac tin, serum 2019 020 OMAIRA [facility], [address] [facility], [address], [place], [address], 0 16:10:04 CT + NG + TV, DNA, urine/ swab 2019 020 OMAIRA [facility], [address], [place], [address], 0 16:10:02 Referral None record ed. Procedures None record ed. Surgeries None record ed. Imaging US, duplex , venous , lower extrem ity [address] Patient Access Centralized Scheduling, Centralized Scheduling, [address] [place], [address], 3 11:25:59 US, echoca rdiogr am [address] Patient Access Centralized Scheduling, Centralized Scheduling, [address] [place], [address], 3 10:55:18 Medication Orders triamc inolon e aceton bushra 0.1 % topica l ointme nt [address]/Pharmacy #[id number], [facility] [facility] [place], [address], 3 12:00:50 triamc inolon e aceton bushra 0.1 % topica l ointme nt [address]/Pharmacy #[id number], [address] [facility], [place], [address], 3 18:08:51 diphen hydram ine 25 mg capsul e [address]/Pharmacy #[id number], [address], [place], [address], 3 18:08:51 Zithro max Z-Niranjan 250 mg tablet 2019 020 [email or web address] [facility] #[id number], [address], [place], [place], [id number], 1 16:23:34 noreth indron e 1 mg-eth inyl estrad iol 20 mcg (24)-i pablo 75 mg (4) tablet 2019 020 efairallma [facility] #[id number], [address], [place], [place], [id number], 0 15:32:09 Patient TargetsNo targets recorded. Patient Instructions Encounter Date Encounter Id Patient Instructions Last Modified By Organization Details Last Modified Time 03/30/2020 [id number] chlamydia: care instructions Not available 04/01/2020 14:09:56 12/14/2022 [id number] A healthy lifestyle: care instructions [email or web address] Not available 12/14/2022 18:08:51 Reason for Referral None Reported. Results Created Date Observation Date Name Description Value Unit Range Abnormal Flag Note LastModifiedBy Organization Detail LastModifiedTime 11/14/19 20 11/15/2019 CBC w/ auto diff WBC 2.8 x10e3 /uL 3.4-10 .8 below low normal Not Available [facility] ([facility]) [address] [place], [address], 11/15/2019 06:28:03 11/14/19 20 11/15/2019 CBC w/ auto diff RBC 4.42 x10e6 /uL 3.77-5 .28 Not Available [facility] ([facility]) [address] [place], [address], 11/15/2019 06:28:03 11/14/19 20 11/15/2019 CBC w/ auto diff hemoglobin 13.0 g/dL 11.1-1 5.9 Not Available [facility] ([facility]) [address] [facility], [place], [address], 11/15/2019 06:28:03 11/14/19 20 11/15/2019 CBC w/ auto diff hematocrit 39.8 % 34.0-4 6.6 Not Available [facility] ([facility]) [address] [facility], [place], [address], 11/15/2019 06:28:03 11/14/1911/15/2019 CBC w/ auto diff MCV 90 fL 79-97 Not Available [facility] ([facility]) [address] [facility], [place], [address], 11/15/2019 06:28:03 11/14/1911/15/2019 CBC w/ auto diff MCH 29.4 pg 26.6-3 3.0 Not Available [facility] ([facility]) [address] [facility], [place], [address], 11/15/2019 06:28:03 11/14/1911/15/2019 CBC w/ auto diff MCHC 32.7 g/dL 31.5-3 5.7 Not Available [facility] ([facility]) [address] [facility], [place], [address], 11/15/2019 06:28:03 11/14/1911/15/2019 CBC w/ auto diff RDW 12.4 % 11.7-1 5.4 Not Available [facility] ([facility]) [address] [facility], [place], [address], 11/15/2019 06:28:03 11/14/1911/15/2019 CBC w/ auto diff platelets 331 x10e3 /uL 150-45 0 Not Available [facility] ([facility]) [address] [place], [address], 11/15/2019 06:28:03 11/14/1911/15/2019 CBC w/ auto diff neutrophils 50 % not estab. Not Available [facility] ([facility]) [address] [place], [address], 11/15/2019 06:28:03 11/14/19 20 11/15/2019 CBC w/ auto diff lymphs 42 % not estab. Not Available [facility] ([facility]) [address] [place], [address], 11/15/2019 06:28:03 11/14/19 20 11/15/2019 CBC w/ auto diff monocytes 5 % not estab. Not Available [facility] ([facility]) [address] [place], [address], 11/15/2019 06:28:03 11/14/1911/15/2019 CBC w/ auto diff eos 2 % not estab. Not Available [facility] ([facility]) [address] [place], [address], 11/15/2019 06:28:03 11/14/1911/15/2019 CBC w/ auto diff basos 1 % not estab. Not Available [facility] ([facility]) [address] [facility], [place], [address], 11/15/2019 06:28:03 11/14/1911/15/2019 CBC w/ auto diff immature cells [employer]CHNICIAN Not Available [facility] ([facility]) [address] [place], [address], 11/15/2019 06:28:03 11/14/1911/15/2019 CBC w/ auto diff neutrophils (absolute) 1.4 x10e3 /uL 1.4-7. 0 Not Available [facility] ([facility]) [address] [place], [address], 11/15/2019 06:28:03 11/14/1911/15/2019 CBC w/ auto diff lymphs (absolute) 1.2 x10e3 /uL 0.7-3. 1 Not Available [facility] ([facility]) [address] [facility], [place], [address], 11/15/2019 06:28:03 11/14/1911/15/2019 CBC w/ auto diff monocytes(ab solute) 0.2 x10e3 /uL 0.1-0. 9 Not Available [facility] ([facility]) [address] [facility], [place], [address], 11/15/2019 06:28:03 11/14/1911/15/2019 CBC w/ auto diff eos (absolute) 0.1 x10e3 /uL 0.0-0. 4 Not Available [facility] ([facility]) [address] [facility], [place], [address], 11/15/2019 06:28:03 11/14/1911/15/2019 CBC w/ auto diff baso (absolute) 0.0 x10e3 /uL 0.0-0. 2 Not Available [facility] ([facility]) [address] [facility], [place], [address], 11/15/2019 06:28:03 11/14/1911/15/2019 CBC w/ auto diff immature granulocytes 0 % not estab. Not Available [facility] ([facility]) [address] [facility], [place], [address], 11/15/2019 06:28:03 11/14/1911/15/2019 CBC w/ auto diff immature grans (abs) 0.0 x10e3 /uL 0.0-0. 1 Not Available [facility] ([facility]) [address] [facility], [place], [address], 11/15/2019 06:28:03 11/14/1911/15/2019 CBC w/ auto diff NRBC [employer]CH[employer]ICIAN Not Available [facility] ([facility]) [address] [place], [address], 11/15/2019 06:28:03 11/14/19 20 11/15/2019 CBC w/ auto diff hematology comments: [employer]CHNICIAN Not Available [facility] ([facility]) [address] [facility] [place], [address], 11/15/2019 06:28:03 11/14/19 20 11/15/2019 CMP, serum or plasm a glucose 83 mg/dL 65-99 Not Available [facility] ([facility]) [address] [facility] [place], [address], 11/15/2019 06:28:04 11/14/19 20 11/15/2019 CMP, serum or plasm a BUN 10 mg/dL 6-20 Not Available [facility] ([facility]) [address] [facility] [place], [address], 11/15/2019 06:28:04 11/14/1911/15/2019 CMP, serum or plasm a creatinine 0.68 mg/dL 0.57-1 .00 Not Available [facility] ([facility]) [address] [facility] [place], [address], 11/15/2019 06:28:04 11/14/19 20 11/15/2019 CMP, serum or plasm a eGFR if nonafricn AM 128 mL/mi n/1.7 3 >59 Not Available [facility] ([facility]) [address] [facility] [place], [address], 11/15/2019 06:28:04 11/14/1911/15/2019 CMP, serum or plasm a eGFR if africn AM 148 mL/mi n/1.7 3 >59 Not Available [facility] ([facility]) [address] [facility] [place], [address], 11/15/2019 06:28:04 11/14/19 20 11/15/2019 CMP, serum or plasm a BUN/creatini ne ratio 15 9-23 Not Available [facility] ([facility]) [address] [place], [address], 11/15/2019 06:28:04 11/14/1911/15/2019 CMP, serum or plasm a sodium 142 mmol/ L 134-14 4 Not Available [facility] ([facility]) [address] [facility] [place], [address], 11/15/2019 06:28:04 11/14/1911/15/2019 CMP, serum or plasm a potassium 3.9 mmol/ L 3.5-5. 2 Not Available [facility] ([facility]) [address] [place], [address], 11/15/2019 06:28:04 11/14/1911/15/2019 CMP, serum or plasm a chloride 102 mmol/ L 96-106 Not Available [facility] ([facility]) [address] [place], [address], 11/15/2019 06:28:04 11/14/1911/15/2019 CMP, serum or plasm a carbon dioxide, total 25 mmol/ L 20-29 Not Available [facility] ([facility]) [address] [place], [address], 11/15/2019 06:28:04 11/14/1911/15/2019 CMP, serum or plasm a calcium 8.1 mg/dL 8.7-10 .2 below low normal Not Available [facility] ([facility]) [address] [place], [address], 11/15/2019 06:28:04 11/14/1911/15/2019 CMP, serum or plasm a protein, total 6.9 g/dL 6.0-8. 5 Not Available [facility] ([facility]) [address] [place], [address], 11/15/2019 06:28:04 11/14/1911/15/2019 CMP, serum or plasm a albumin 3.9 g/dL 3.9-5. 0 Not Available [facility] ([facility]) [address] [facility], [address], 11/15/2019 06:28:04 11/14/1911/15/2019 CMP, serum or plasm a globulin, total 3.0 g/dL 1.5-4. 5 Not Available [facility] ([facility]) [address] [facility] [place], [address], 11/15/2019 06:28:04 11/14/1911/15/2019 CMP, serum or plasm a A/G ratio 1.3 1.2-2. 2 Not Available [facility] ([facility]) [address] [place], [address], 11/15/2019 06:28:04 11/14/1911/15/2019 CMP, serum or plasm a bilirubin, total 0.4 mg/dL 0.0-1. 2 Not Available [facility] ([facility]) [address] [facility] [place], [address], 11/15/2019 06:28:04 11/14/1911/15/2019 CMP, serum or plasm a alkaline phosphatase 53 IU/L 43-101 Not Available [facility]) [address] [place], [address], 11/15/2019 06:28:04 11/14/1911/15/2019 CMP, serum or plasm a AST (SGOT) 17 IU/L 0-40 Not Available [facility] ([facility]) [address] [facility], [address], 11/15/2019 06:28:04 11/14/1911/15/2019 CMP, serum or plasm a ALT (SGPT) 9 IU/L 0-32 Not Available [facility] ([facility]) [address] [facility] [place], [address], 11/15/2019 06:28:04 12/05/19 20 12/07/2019 CT + NG + TV, DNA, urine /swab chlamydia by ROSELIA NEGATI VE negati ve Not Available [facility] ([facility]) [address] [place], [address], 12/09/2019 16:10:02 12/05/19 20 12/07/2019 CT + NG + TV, DNA, urine /swab gonococcus by ROSELIA NEGATI VE negati ve Not Available [facility] ([facility]) [address] [place], [address], 12/09/2019 16:10:02 12/05/19 20 12/07/2019 CT + NG + TV, DNA, urine /swab trich vag by ROSELIA NEGATI VE negati ve Not Available [facility] ([facility]) [address] [place], [address], 12/09/2019 16:10:02 12/05/19 20 12/06/2019 lh + FSH, serum LH 13.0 mIU/m L Adult Femal e: Folli cular phase 2.4 - 12.6 Ovula tion phase 14.0 - 95.6 Lutea l phase 1.0 - 11.4 Postm enopa usal 7.7 - 58.5 Not Available [facility] ([facility]) [address] [place], [address], 12/09/2019 16:10:02 12/05/19 20 12/06/2019 lh + FSH, serum FSH 7.8 mIU/m L Adult Femal e: Folli cular phase 3.5 - 12.5 Ovula tion phase 4.7 - 21.5 Lutea l phase 1.7 - 7.7 Postm enopa usal 25.8 - 134.8 Not Available [facility] ([facility]) [address] [place], [address], 12/09/2019 16:10:02 12/05/19 20 12/06/2019 vitam in [...] um and D. Charly maxwell DC: [facility] . 2. Mack wilson MF, Fawn bee NC, Sarah Beth off-F rafaela i JEAN-BAPTISTE, et al. Evalu ation , treat ment, and preve ntion of vitam in D defic iency : an Endoc rine Socie ty clini malika pract ice guide line. JCEM. 2010; 96(7) :1911 -30. Not Available [facility] ([facility]) [address] [place], [address], 12/09/2019 16:10:03 12/05/19 20 12/09/2019 vitam in D, 25-hy droxy + 1,25- dihyd aydee, serum calcitriol(1 ,25 di-oh vit D) 54.6 pg/mL 19.9-7 9.3 Not Available [facility] ([facility]) [address] [place], [address], 12/09/2019 16:10:03 12/05/19 20 12/06/2019 PTH (para thyro id hormo ne), intac t + calci um, serum or plasm a calcium, ionized, serum 5.3 mg/dL 4.5-5. 6 Not Available [facility] ([facility]) [address] [place], [address], 12/09/2019 16:10:04 12/05/19 20 12/06/2019 PTH (para thyro id hormo ne), intac t + calci um, serum or plasm a PTH, intact 24 pg/mL 15 Not Available [facility] ([facility]) [address] [place], [address], 12/09/2019 16:10:04 12/05/19 20 12/06/2019 prola ctin, serum prolactin 61.4 NG/mL 4.8-23 .3 above high normal Not Available [facility] ([facility]) [address] [place], [address], 12/09/2019 16:10:04 12/05/19 20 12/06/2019 TSH, ultra -sens itive , serum TSH 3.130 uIU/m L 0.450- 4.500 Not Available [facility] ([facility]) [address] [place], [address], 12/09/2019 16:10:05 12/05/19 20 12/06/2019 phosp horus , serum or plasm a phosphorus 3.6 mg/dL 3.3-5. 1 Not Available [facility] ([facility]) [address] [place], [address], 12/09/2019 16:10:05 12/05/19 20 12/06/2019 magne sium, serum or plasm a magnesium 1.9 mg/dL 1.6-2. 3 Not Available [facility] ([facility]) [address] [place], [address], 12/09/2019 16:10:06 12/16/19 20 12/17/2019 prola ctin, serum prolactin 24.8 NG/mL 4.8-23 .3 above high normal Not Available [facility] ([facility]) [address] [place], [address], 12/17/2019 08:08:38 12/16/19 20 12/17/2019 vitam in [...] um and D. Charly maxwell DC: [facility] . 2. Mack wilson MF, Fawn bee NC, Sarah Beth off-F rafaela i JEAN-BAPTISTE, et al. Evalu ation , treat ment, and preve ntion of vitam in D defic iency : an Endoc rine Socie ty clini malika pract ice guide line. JCEM. 2010; 96(7) :1911 -30. Not Available [facility] ([facility]) [address] [place], [address], 12/18/2019 16:10:52 12/16/1912/18/2019 vitam in D, 25-hy droxy + 1,25- dihyd aydee, serum calcitriol(1 ,25 di-oh vit D) 38.8 pg/mL 19.9-7 9.3 Not Available [facility] ([facility]) [address] [place], [address], 12/18/2019 16:10:52 12/16/1912/17/2019 PTH (para thyro id hormo ne), intac t + calci um, serum or plasm a calcium, ionized, serum 5.4 mg/dL 4.5-5. 6 Not Available [facility] ([facility]) [address] [place], [address], 12/18/2019 16:10:53 12/16/19 20 12/17/2019 PTH (para thyro id hormo ne), intac t + calci um, serum or plasm a PTH, intact 18 pg/mL 15-65 Not Available [facility] ([facility]) [address] [place], [address], 12/18/2019 16:10:53 12/16/19 20 12/17/2019 phosp horus , serum or plasm a phosphorus 3.9 mg/dL 3.3-5. 1 Not Available [facility] ([facility]) [address] [place], [address], 12/18/2019 16:10:53 12/16/19 20 12/17/2019 magne sium, serum or plasm a magnesium 1.9 mg/dL 1.6-2. 3 Not Available [facility] ([facility]) [address] [place], [address], 12/18/2019 16:10:54 03/04/20 20 03/05/2020 CBC w/ auto diff WBC 5.5 x10e3 /uL 3.4-10 .8 Not Available [facility] ([facility]) [address] [place], [address], 03/05/2020 20:08:15 03/04/20 20 03/05/2020 CBC w/ auto diff RBC 4.46 x10e6 /uL 3.77-5 .28 Not Available [facility] ([facility]) [address] [place], [address], 03/05/2020 20:08:15 03/04/20 20 03/05/2020 CBC w/ auto diff hemoglobin 13.1 g/dL 11.1-1 5.9 Not Available [facility] ([facility]) [address] [place], [address], 03/05/2020 20:08:15 03/04/20 20 03/05/2020 CBC w/ auto diff hematocrit 39.9 % 34.0-4 6.6 Not Available [facility] ([facility]) [address] [facility], [place], [address], 03/05/2020 20:08:15 03/04/20 20 03/05/2020 CBC w/ auto diff MCV 90 fL 79-97 Not Available [facility] ([facility]) [address] [facility], [place], [address], 03/05/2020 20:08:15 03/04/20 20 03/05/2020 CBC w/ auto diff MCH 29.4 pg 26.6-3 3.0 Not Available [facility] ([facility]) [address] [facility], [place], [address], 03/05/2020 20:08:15 03/04/20 20 03/05/2020 CBC w/ auto diff MCHC 32.8 g/dL 31.5-3 5.7 Not Available [facility] ([facility]) [address] [facility], [place], [address], 03/05/2020 20:08:15 03/04/20 20 03/05/2020 CBC w/ auto diff RDW 13.0 % 11.7-1 5.4 Not Available [facility] ([facility]) [address] [facility], [place], [address], 03/05/2020 20:08:15 03/04/20 20 03/05/2020 CBC w/ auto diff platelets 308 x10e3 /uL 150-45 0 Not Available [facility] ([facility]) [address] [facility], [place], [address], 03/05/2020 20:08:15 03/04/20 20 03/05/2020 CBC w/ auto diff neutrophils 65 % not estab. Not Available [facility] ([facility]) [address] [facility], [place], [address], 03/05/2020 20:08:15 03/04/20 20 03/05/2020 CBC w/ auto diff lymphs 27 % not estab. Not Available [facility] ([facility]) [address] [place], [address], 03/05/2020 20:08:15 03/04/20 20 03/05/2020 CBC w/ auto diff monocytes 7 % not estab. Not Available [facility] ([facility]) [address] [place], [address], 03/05/2020 20:08:15 03/04/20 20 03/05/2020 CBC w/ auto diff eos 1 % not estab. Not Available [facility] ([facility]) [address] [place], [address], 03/05/2020 20:08:15 03/04/20 20 03/05/2020 CBC w/ auto diff basos 0 % not estab. Not Available [facility] ([facility]) [address] [place], [address], 03/05/2020 20:08:15 03/04/20 20 03/05/2020 CBC w/ auto diff immature cells [employer]CHNICIAN Not Available [facility] ([facility]) [address] [place], [address], 03/05/2020 20:08:15 03/04/20 20 03/05/2020 CBC w/ auto diff neutrophils (absolute) 3.5 x10e3 /uL 1.4-7. 0 Not Available [facility] ([facility]) [address] [place], [address], 03/05/2020 20:08:15 03/04/20 20 03/05/2020 CBC w/ auto diff lymphs (absolute) 1.5 x10e3 /uL 0.7-3. 1 Not Available [facility] ([facility]) [address] [place], [address], 03/05/2020 20:08:15 03/04/20 20 03/05/2020 CBC w/ auto diff monocytes(ab solute) 0.4 x10e3 /uL 0.1-0. 9 Not Available [facility] ([facility]) [address] [place], [address], 03/05/2020 20:08:15 03/04/20 20 03/05/2020 CBC w/ auto diff eos (absolute) 0.1 x10e3 /uL 0.0-0. 4 Not Available [facility] ([facility]) [address] [facility], [place], [address], 03/05/2020 20:08:15 03/04/20 20 03/05/2020 CBC w/ auto diff baso (absolute) 0.0 x10e3 /uL 0.0-0. 2 Not Available [facility] ([facility]) [address] [facility], [place], [address], 03/05/2020 20:08:15 03/04/20 20 03/05/2020 CBC w/ auto diff immature granulocytes 0 % not estab. Not Available [facility] ([facility]) [address] [place], [address], 03/05/2020 20:08:15 03/04/20 20 03/05/2020 CBC w/ auto diff immature grans (abs) 0.0 x10e3 /uL 0.0-0. 1 Not Available [facility] ([facility]) [address] [place], [address], 03/05/2020 20:08:15 03/04/20 20 03/05/2020 CBC w/ auto diff NRBC [employer]CHNICIAN Not Available [facility] ([facility]) [address] [place], [address], 03/05/2020 20:08:15 03/04/20 20 03/05/2020 CBC w/ auto diff hematology comments: [employer]CHNICIAN Not Available [facility] ([facility]) [address] [place], [address], 03/05/2020 20:08:15 03/04/20 20 03/05/2020 prola ctin, serum prolactin 24.7 NG/mL 4.8-23 .3 above high normal Not Available [facility] ([facility]) [address] [place], [address], 03/05/2020 20:08:16 03/04/20 20 03/05/2020 calci um, ioniz ed, quant ISE, serum or plasm a calcium, ionized, serum 5.3 mg/dL 4.5-5. 6 Not Available [facility] ([facility]) [address] [place], [address], 03/05/2020 20:08:17 03/12/20 20 03/14/2020 bacte rial vagin osis panel , vagin al trich vag by ROSELIA NEGATI VE negati ve Not Available [facility] ([facility]) [address] [place], [address], 03/17/2020 11:38:17 03/12/2003/14/2020 bacte rial vagin osis panel , vagin al chlamydia trachomatis, ROSELIA POSITI VE negati ve abnormal Not Available [facility] ([facility]) [address] [place], [address], 03/17/2020 11:38:17 03/12/2003/14/2020 bacte rial vagin osis panel , vagin al neisseria gonorrhoeae, ROSELIA NEGATI VE negati ve Not Available [facility] ([facility]) [address] [place], [address], 03/17/2020 11:38:17 03/12/2003/16/2020 bacte rial vagin osis panel , vagin al atopobium vaginae MODERA TE - 1 score Not Available [facility] ([facility]) [address] [place], [address], 03/17/2020 11:38:17 03/12/2003/16/2020 bacte rial vagin osis panel , vagin al bvab 2 HIGH - 2 score abnormal Not Available [facility] ([facility]) [address] [place], [address], 03/17/2020 11:38:17 03/12/2003/16/2020 bacte rial vagin osis [...] is not neces eric. Not Available [facility] ([facility]) [address] [facility], [place], [address], 03/17/2020 11:38:17 03/12/2003/16/2020 bacte rial vagin osis panel , vagin al juanita albicans, ROSELIA NEGATI VE negati ve Not Available [facility] ([facility]) [address] [place], [address], 03/17/2020 11:38:17 03/12/2003/16/2020 bacte rial vagin osis panel , vagin al juanita glabrata, ROSELIA NEGATI VE negati ve Not Available [facility] ([facility]) [address] [place], [address], 03/17/2020 11:38:17 03/12/2003/17/2020 bacte rial vagin osis panel , vagin al hsv 1 ROSELIA NEGATI VE negati ve Not Available [facility] ([facility]) [address] [place], [address], 03/17/2020 11:38:17 03/12/20 20 03/17/2020 bacte rial vagin osis panel , vagin al hsv 2 ROSELIA NEGATI VE negati ve Not Available [facility] ([facility]) [address] [place], [address], 03/17/2020 11:38:17 10/13/19 21 10/14/2020 bacte rial vagin osis + vagin itis panel , vagin al atopobium vaginae Low - 0 score Not Available [facility] ([facility]) [address] [place] [address], [address], 10/15/2020 16:12:01 10/13/19 21 10/14/2020 bacte rial vagin osis + vagin itis panel , vagin al bvab 2 Low - 0 score Not Available [facility] ([facility]) [address] [place] [address], [address], 10/15/2020 16:12:01 10/13/19 21 10/14/2020 bacte rial [...] Drug Admin istra tion. Not Available [facility] ([facility]) [address] [place], [address], 10/15/2020 16:12:01 10/13/19 21 10/14/2020 bacte rial vagin osis + vagin itis panel , vagin al juanita albicans, ROSELIA Negati ve negati ve Not Available [facility] ([facility]) [address] [place], [address], 10/15/2020 16:12:01 10/13/1910/14/2020 bacte rial vagin osis + vagin itis panel , vagin al juanita glabrata, ROSELIA Negati ve negati ve Not Available [facility] ([facility]) [address] [place], [address], 10/15/2020 16:12:01 10/13/19 21 10/15/2020 bacte rial vagin osis + vagin itis panel , vagin al trich vag by ROSELIA Negati ve negati ve Not Available [facility] ([facility]) [address] [place], [address], 10/15/2020 16:12:01 10/13/19 21 10/15/2020 bacte rial vagin osis + vagin itis panel , vagin al chlamydia trachomatis, ROSELIA Negati ve negati ve Not Available [facility] ([facility]) [address] [place], [address], 10/15/2020 16:12:01 10/13/19 21 10/15/2020 bacte rial vagin osis + vagin itis panel , vagin al neisseria gonorrhoeae, ROSELIA Negati ve negati ve Not Available [facility] ([facility]) [address] [place], [address], 10/15/2020 16:12:01 10/13/19 21 10/15/2020 HSV (1+2) DNA, qual, PCR, unspe cifie d speci men hsv 1 ROSELIA Negati ve negati ve Not Available [facility] ([facility]) [address] [facility], [place], [address], 10/15/2020 16:12:02 10/13/19 21 10/15/2020 HSV (1+2) DNA, qual, PCR, unspe cifie d speci men hsv 2 ROSELIA Negati ve negati ve Not Available [facility] ([facility]) [address] [facility], [place], [address], 10/15/2020 16:12:02 10/13/19 21 10/14/2020 cultu re, [...] n is noted . Not Available [facility] ([facility]) [address] [facility], [place], [address], 10/15/2020 16:12:02 10/13/19 21 10/12/2020 pregn eli test, urine HCG negati ve Not Available In-Office Order Internal Use Only DO Not Attach Compendium DO Not Attach Compendium, Do Not Delete/merge, [id number] 10/12/2020 12:49:34 Result Notes None recorded. Problems Name Problem SNOMED Code Status Onset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
[2025-04-12 09:45] LABS: Beta HCG Quantitative 18.44 mIU/ML
== END 2025-04-12 08:33 | disposition home or self-care (01) ==
LOC: ANHLAB 08:40
PROVIDERS: PCP Family Medicine; Visit Provider Nurse Practitioner Family
DX: O03.9 Complete or unspecified spontaneous abortion without complication (principal)
CPT/HCPCS: 36415; 84702